=== PATIENT | male | born 1955 | race Caucasian/White ===

== ENCOUNTER → 2018-03-14 06:49 | Outpatient (CLI) | payer OTHER ==
[~2018-03-14] VITALS: Ht 177.8 cm; Wt 113.6 kg
--- NOTE | ~2018-03-14 | HEMODYNAMI ---
PATIENT:GUY MENDIETA MEDICAL RECORD: [id number] : 55 LOCATION:[facility] ADMISSION DATE: 03/14/18 Generatedon:03/14/201810:29 Patient name: GUY MENDIETA Patient #: [id number] SSN : : 1955 Date of study: 03/14/2018 Page: Of Hemodynamic Procedure Report Patient Data Patient Demographics Procedure consent was obtained First Name: GUY Gender: Male Last Name: GAYATRI : 1955 Patient #: [id number] Age: 62 year(s) Race: Unknown Additional ID: [id number] Contact details [address]: [address] [place] [address] State: [place] City: [place] Zip code: [address] Admission Admission Data Admission Date: 03/14/2018 Admission Time: 6:49 Height (in.): 70 BSA: 2.29 (m2) Height (cm.): 177.8 BMI: 35.73 (kg/m2) Weight (lbs.): 249 Weight (kg.): 112.94 Procedure Procedure Types Cath Procedure Diagnostic Procedure LHC Coronaries only Aortic Root Angiography Sedation Charges Moderate Sedation up to 15 minutes Moderate Sedation up to 30 minutes Procedure Description Procedure Date Procedure Date: 03/14/2018 Procedure Start Time: 9:56 Procedure End Time: 10:23 Procedure Staff Name Function Jamarcus Luque MD Performing Physician Lizzie Cuevas RT Monitor Varinder Shah RN Nurse Nicole Kaiser RT Scrub Procedure Data Cath Procedure Fluoroscopy Diagnostic fluoroscopy Total fluoroscopy Time: 8.7 time: 8.7 min min Diagnostic fluoroscopy Total fluoroscopy dose: dose: 2523 mGy 2523 mGy Contrast Material Contrast Material Type Amount (ml) Isovue 300 127 Entry Location Entry Primary Successful Side Size Upsize Upsize Entry Closure Lam ccessful Closure Location (Fr) 1 (Fr) 2 (Fr) Remarks Device Remarks Radial Right 6 Fr Mechanical artery Short Compression Estimated blood loss: 10 ml Diagnostic catheters Device Type Used For End Catheter Placement DIAGNOSTIC Sai 110cm Procedure 5Fr catheter ([id number]) DIAGNOSTIC Macon 110cm 5 Procedure Fr catheter (224489) DIAGNOSTIC AR 1 MOD 5Fr Procedure catheter ([id number]) DIAGNOSTIC Pigtail 5Fr Ventriculography catheter ([id number]) Procedure Complications No complications Procedure Medications Medication Administration Route Dosage Oxygen etCO2 Nasal cannula 2 l/min Heparin Flush Bag added to field 2 bags (1000units/500ml NS) 0.9% NaCl I.V. 100 ml/hr Radial Cocktail added to field 1 syringe (Verapomil 2mg/Nitro 400mcg/Heparin 1500units) Fentanyl I.V. 50 mcg Versed I.V. 1 mg Fentanyl I.V. 50 mcg Versed I.V. 1 mg Radial Cocktail I.A. 1 syringe (Verapomil 2mg/Nitro 400mcg/Heparin 1500units) Hemodynamics Rest BSA: 2.29 (m2) O2 Consumption: Estimated: 277.6 (ml/min) O2 Consumption indexed: Estimated:121.22 (ml/min/m) Heart Rate: 81 (bpm) Pressure Samples Time Site Value (mmHg) Purpose Heart Use Rate(bpm) 10:17 AO 112/66(85) Snapshot 81 Snapshots Pre Cath Intra NCS Post Cath Vital Signs Time Heart Resp SPO2 etCO2 NIBP (mmHg) Rhythm Pain Sedation Rate (ipm) (%) (mmHg) Status Level (bpm) 9:36:57 76 16 94 33 127/76(98) NSR 0 (11) 10(A) , No pain 9:41:05 79 16 94 35.2 126/78(93) NSR 0 (11) 10(A) , No pain 9:45:13 80 16 94 30.7 120/78(93) NSR 0 (11) 10(A) , No pain 9:49:17 80 16 95 39 125/81(102) NSR 0 (11) 10(A) , No pain 9:53:24 78 17 95 37.5 125/77(97) NSR 0 (11) 10(A) , No pain 9:57:30 77 17 94 37.5 128/82(104) NSR 0 (11) 10(A) , No pain 10:01:40 86 17 94 34.5 113/72(86) NSR 0 (11) 9(A) , No pain 10:05:44 82 17 94 36.8 120/74(93) NSR 0 (11) 9(A) , No pain 10:09:52 78 17 95 38.3 115/74(91) NSR 0 (11) 9(A) , No pain 10:13:56 80 16 94 38.2 119/79(102) NSR 0 (11) 9(A) , No pain 10:18:01 82 17 95 39 120/76(95) NSR 0 (11) 9(A) , No pain 10:22:09 81 17 94 39 117/73(89) NSR 0 (11) 9(A) , No pain Medications Time Medication Route Dose Verified Delivered Reason Notes Effectiveness by by 9:37:16 Oxygen etCO2 2 l/min Jamarcus Varinder Per Nasal Rebel Shah RN physician cannula 9:37:23 Heparin Flush added 2 bags Jamarcus Varinder used for Bag to Rebel Shah RN procedure (1000units/500ml field NS) 9:37:31 0.9% NaCl I.V. 100 Jamarcus Varinder Per ml/hr Rebel Shah RN physician 9:37:39 Radial Cocktail added 1 Jamarcus Varinder used for (Verapomil to syringe Rebel Shah RN procedure 2mg/Nitro field 400mcg/Heparin 1500units) 9:55:06 Fentanyl I.V. 50 mcg Jamarcus Varinder for sedation Rebel Shah RN 9:55:12 Versed I.V. 1 mg Jamarcus Varinder for sedation Rebel Shah RN 9:58:33 Fentanyl I.V. 50 mcg Jamarcus Varinder for sedation Rebel Shah RN 9:58:40 Versed I.V. 1 mg Jamarcus Varinder for sedation Rebel Shah RN 9:58:47 Radial Cocktail I.A. 1 Jamarcus Jamarcus for (Verapomil syringe Rebel Luque MD vasodilation 2mg/Nitro 400mcg/Heparin 1500units) Procedure Log Time Note 9:10:35 Varinder Shah RN sent for patient. Start room use. 9:23:02 Patient Weight : 249 lbs 9:23:11 Patient Height : 70 inches 9:24:33 Diagnostic Cath status Elective 9:24:36 Time tracking: Regular hours (M-F 7:00 - 5:00) 9:24:43 Plan of Care:Hemodynamics will remain stable., Cardiac rhythm will remain stable., Comfort level will be maintained., Respiratory function will remain adequate., Patient/ family verbilizes understanding of procedure., Procedure tolerated without complication., Recovers from procedure without complications.. 9:25:20 Patient received from Pre/Post Procedure Room to [facility] 2 Alert and oriented. Tansferred to table in Supine position. 9:35:41 Warm blankets applied, and braeden hugger turned on for patient comfort. 9:35:42 Correct patient and procedure confirmed by team. 9:35:43 Signed procedure consent form obtained from patient. 9:35:45 ECG and BP/O2 sat monitors applied to patient. 9:35:49 Vital chart was started 9:35:52 Full Disclosure recording started 9:35:57 H&P Date Dictated: 03/14/2018 Within 30 days and on chart., H&P Addendum completed by physician on day of procedure. (MUST COMPLETE FOR ALL OUTPATIENTS). 9:35:58 Pre-procedure instructions explained to patient. 9:35:58 Pre-op teaching completed and patient verbalized understanding. 9:36:00 Family in waiting room. 9:36:01 Patient NPO since Midnight. 9:36:03 Is the patient allergic to Iodine/contrast media? No. 9:36:04 Was the patient premedicated? No 9:36:05 Is patient on blood thinner?No 9:36:07 Patient diabetic? Yes. 9:36:08 If diabetic: On Metformin? Yes 9:36:14 If on Metformin: Last Dose? 03/12/2018 9:36:17 Previous problem with sedation/anesthesia? No ? 9:36:19 Snore? Yes 9:36:19 Sleep apnea? Yes 9:36:20 Deviated septum? No 9:36:22 Opens mouth fully? Yes 9:36:23 Sticks out tongue? Yes 9:36:25 Airway obstruction? No ? 9:36:27 Dentures? No ? 9:36:30 Pre procedure: right dorsailis pedis pulse 2+ Normal; easily identifiable; not easily obliterated 9:36:32 Pre procedure: left dorsailis pedis pulse 2+ Normal; easily identifiable; not easily obliterated 9:36:34 Patient pain scale 0/10 ?. 9:36:40 IV patent on arrival in left forearm with 0.9% NaCl at [facility]. 9:36:42 Lab results completed and on chart. 9:36:49 Right Radial & Right Groin area was prepped with chlora-prep and draped in sterile fashion 9:36:49 Alarms reviewed by R. N. 9:36:50 Sharps counted by scrub and verified by R.N. 9:37:16 Oxygen 2 l/min etCO2 Nasal cannula was administered by Varinder Shah RN; Per physician; 9:37:23 Heparin Flush Bag (1000units/500ml NS) 2 bags added to field was administered by Varinder Shah RN; used for procedure; 9:37:31 0.9% NaCl 100 ml/hr I.V. was administered by Varinder Shah RN; Per physician; 9:37:39 Radial Cocktail (Verapomil 2mg/Nitro 400mcg/Heparin 1500units) 1 syringe added to field was administered by Varidner Shah RN; used for procedure; 9:54:04 Physician arrived 9:54:05 --------ALL STOP TIME OUT------ 9:54:05 Final Timeout: patient, procedure, and site verified with staff and physician. All members of the team are in agreement. 9:54:08 Right Radial & Right Groin site verified by team. 9:54:13 Physical assessment completed. ASA score P 2 - A patient with mild systemic disease as per Jamarcus Luque MD. 9:54:17 Sedation plan: IV Moderate Sedation Medication:Versed, Fentanyl 9:54:22 Use device set Radial Dx or PCI 9:55:06 Fentanyl 50 mcg I.V. was administered by Varinder Shah RN; for sedation; 9:55:12 Versed 1 mg I.V. was administered by Varinder Shah RN; for sedation; 9:56:09 Procedure started. 9:56:25 ACIST Syringe (02900) opened to sterile field. 9:56:25 Medline Cath Pack ([id number]) opened to sterile field. 9:56:26 Bag Decanter (2002) opened to sterile field. 9:56:27 DIAGNOSTIC WIRE .035 260cm J wire (079648) opened to sterile field. 9:56:28 ACIST Hand Control (00021) opened to sterile field. 9:56:28 ACIST Manifold (41850) opened to sterile field. 9:56:29 Tegaderm 4 x 4 (1626W) opened to sterile field. 9:56:30 MBrace Wrist Support ([id number]) opened to sterile field. 9:56:31 NEEDLE Cook 21G 4cm Radial (I08767) opened to sterile field. 9:56:34 SHEATH 6Fr Prelude Radial ([id number]) opened to sterile field. 9:56:40 Local anesthetic to right radial artery with Lidocaine 2% by Jamarcus Luque MD.INITIAL ACCESS ONLY 9:57:18 A 6 Fr Short sheath was inserted into the Right Radial artery 9:58:20 A DIAGNOSTIC Sai 110cm 5Fr catheter (452872) was advanced over the wire and used for Procedure. 9:58:33 Fentanyl 50 mcg I.V. was administered by Varinder Shah RN; for sedation; 9:58:40 Versed 1 mg I.V. was administered by Varinder Shah RN; for sedation; 9:58:47 Radial Cocktail (Verapomil 2mg/Nitro 400mcg/Heparin 1500units) 1 syringe I.A. was administered by Jamarcus Luque MD; for vasodilation; 10:00:51 RCA angiography performed. 10:03:39 A DIAGNOSTIC Macon 110cm 5 Fr catheter (856512) was advanced over the wire and used for Procedure. 10:06:03 Catheter removed. 10:06:30 GUIDE 6FR EBU 3.5 catheter (ZE6VFT17) opened to sterile field. 10:08:34 LCA angiography performed. 10:08:54 Catheter removed. 10:11:22 A DIAGNOSTIC AR 1 MOD 5Fr catheter (153542H) was advanced over the wire and used for Procedure. 10:11:37 CX comes off the right 10:12:57 Catheter removed. 10:13:53 GUIDE 5FR AR 2.0 catheter (LR3SS22) opened to sterile field. 10:14:09 LCA angiography performed. 10:14:32 CX visualized 10:15:38 Catheter removed. 10:15:50 A DIAGNOSTIC Pigtail 5Fr catheter (499913K) was advanced over the wire and used for Ventriculography. 10:17:44 unable to cross valve. 10:17:46 Aortic Root visualized 10:19:51 Catheter removed. 10:21:29 Sheath removed intact; hemostasis achieved with Mechanical Compression to the Right Radial artery. 10:21:51 TR BAND Standard (FPT49FAK) opened to sterile field. 10:21:55 Procedure ended.(Physican Out) 10:22:10 Fluoroscopy time 08.70 minutes. 10:22:15 Fluoroscopy dose: 2523 mGy 10:22:15 Flurop Dose total: 2523 10:22:19 Contrast amount:Isovue 300 127ml. 10:22:21 Sharps counted by scrub and verified by R.N. 10:22:23 TR band inflated with 12cc of air. 10:22:25 Insertion/operative site no bleeding no hematoma. 10:22:29 Post-op/insertion site Right Radial artery dressed using a 4 x 4 and Tegaderm. 10:22:35 Post Procedure Pulses reassessed and unchanged 10:22:38 Post-procedure physical assessment completed. ASA score P 2 - A patient with mild systemic disease as per Jamarcus Luque MD. 10:22:41 Post procedure rhythm: unchanged. 10::44 Estimated blood loss: 10 ml 10::46 Post procedure instruction explained to patient.Patient verbalizes understanding. 10:23:06 Procedure type changed to Cath procedure, Diagnostic procedure, LHC, Coronaries only, Aortic Root Angiography, Sedation Charges, Moderate Sedation up to 15 minutes, Moderate Sedation up to 30 minutes 10:23:07 Procedure and supply charges have been captured, reviewed, submitted and are correct. 10:23:27 Procedure Complication : No complications 10:23:31 Vital chart was stopped 10:23:32 See physician's report for complete and final results. 10:23:33 Report given to Pre/Post Procedure Room. 10:23:36 Patient transfered to Pre/Post Procedure Room with Stretcher. 10:23:38 Procedure ended. 10:23:38 Full Disclosure recording stopped 10:23:41 End room use (Document Last) Device Usage Item Name Manufacture Quantity Catalog Number Hospital Part Current M inimal Lot# / Charge Number Stock Stock Serial# Code ACIST Syringe Acist 1 09516 451666 305920 784375 2 0 (57054) Medical Systems Inc Medline Cath Cardinal 1 [id number] 917708 09231 023073 5 Pack Health ([id number]) Bag Decanter Microtek 1 2001S 524468 54167 064122 5 () Medical Inc. DIAGNOSTIC WIRE St Patric 1 220753 716966 843709 462192 3 0 .035 260cm J wire (189411) ACIST Hand Acist 1 11835 203139 341001 004010 5 Control (13556) Medical Systems Inc ACIST Manifold Acist 1 07102 498332 301291 678943 5 (28083) Medical Systems Inc Tegaderm 4 x 4 3M 1 1626W 320199 528682 673983 5 (1626W) MBrace Wrist Advanced 1 140-0250-00 361705 09595 934487 5 Support Vascular ([id number]) Dynamics NEEDLE Cook 21G Cook Medical 1 R66995 855973 622700 133114 5 4cm Radial (T19492) SHEATH 6Fr Merit 1 [id number] 719270 946065 941421 5 Prelude Radial Medical ([id number]) DIAGNOSTIC Terumo 1 40-5023 849336 636500 030547 5 Sai 110cm 5Fr catheter (090082) DIAGNOSTIC Terumo 1 40-5013 387626 646689 414183 5 Macon 110cm 5 Fr catheter (667320) GUIDE 6FR EBU Medtronic 1 [id number] 185843 07938 527792 3 3.5 catheter ([id number]) DIAGNOSTIC AR 1 Cardinal 1 [id number] 273271 075969 275250 1 5 MOD 5Fr Health catheter (838348J) GUIDE 5FR AR Medtronic 1 [id number] 133597 707835 261631 1 2.0 catheter ([id number]) DIAGNOSTIC Cardinal 1 [id number] 936655 906383 419564 5 Pigtail 5Fr Health catheter (631934G) TR BAND Terumo 1 [id number] 283262 816677 231424 4 0 Standard ([id number]) Signature [place] Stage Time Signature Unsigned Intra-Procedure 03/14/2018 Lizzie Cuevas 10:29:30 AM RT(R) Signatures Monitor : Lizzie Cuevas Signature : RT Date : Time : [address] [place] [address]
[~2018-03-14 06:49] MED LIST: ALEVE220 MG PO; BAYER CHEWABLE81 MG PO; FLOMAX0.4 MG PO; GLUCOPHAGE500 MG PO; JARDIANCE25 MG PO; LEVEMIR FLEX TOUCH P SQ; LEVOTHYROXINE175 MCG PO; LISINOPRIL10 MG PO; OMEPRAZOLE40 MG PO; PRAVACHOL40 MG PO; PROZAC20 MG PO; ZYRTEC10 MG PO
[2018-03-14 08:12] VITALS: BP 133/81; BMI 35.9
[2018-03-14 08:26] LABS: BASOPHILS 0.4 % (0-2); EOSINOPHILS 2.5 % (0-7); HEMATOCRIT 48.8 % (42.0-54.0); HEMOGLOBIN 17.1 g/dL (13.5-17.5); IMMATURE GRANULOCYTES 1.3 % (0-5); LYMPHOCYTES 30.3 % (15-50); MCH 29.4 pg (26.0-34.0); MEAN PLATELET VOLUME 10.6 fL (7.4-10.4); NEUTROPHILS 53.5 % (40-80); PLATELET COUNT 138 10x3/uL (130-400); RBC 5.81 10x6/uL (4.20-6.10); RDW 13.4 % (11.5-14.5)
[2018-03-14 08:43] LABS: CALC OSMOLALITY 285 mosm/kg (275-300); CALCIUM 8.4 mg/dL (8.5-10.1); CARBON DIOXIDE 26.1 mmol/L (21.0-32.0); CHLORIDE - SERUM 106 mmol/L (98-107); CREATININE - SERUM 0.9 mg/dL (0.6-1.3); GLUCOSE 154 mg/dL (74-106); POTASSIUM - SERUM 3.9 mmol/L (3.5-5.1); SODIUM 141 mmol/L (136-145); UREA NITROGEN 17 mg/dL (7-18); eGFR NON AFRICAN AMERICAN > 90 mL/min (90-120)
[2018-03-14 13:00] VITALS: Ht 177.8 cm; Wt 113.6 kg
== END | disposition home or self-care (01) ==
LOC: D.CATH 06:49
PROVIDERS: Internal Medicine Cardiovascular Disease
DX: I25.119 Atherosclerotic heart disease of native coronary artery with unspecified angina pectoris (principal); I35.2 Nonrheumatic aortic (valve) stenosis with insufficiency; I34.0 Nonrheumatic mitral (valve) insufficiency; Z01.812 Encounter for preprocedural laboratory examination

== ENCOUNTER 2018-04-05 13:00 | Inpatient (IN) | payer OTHER ==
[~2018-04-05] VITALS: Ht 177.8 cm; Wt 116.2 kg
--- NOTE | ~2018-04-05 | TEE ---
PATIENT:GUY MENDIETA MEDICAL RECORD: [id number] LOCATION:[place] [address] AGE OF PATIENT: 62 ADMISSION DATE: 04/09/18 SEX: M REFERRING PHYSICIAN: INTERPRETING PHYSICIAN: BIJAN MON MD TRANSESOPHAGEAL ECHOCARDIOGRAM Date: 04/09/18 PHUC CHARGE Y INDICATIONS: CABG, AVR PREMEDICATIONS: PATIENT'S RESPONSE PROCEDURE DOPPLER MEASUREMENTS: LVIT LA PA RA LVOT RVOT Asc. Ao AV Gradient Peak AV Mean AV Area MV Gradient Peak MV Mean MV Area INTERPRETATION: Doppler: 2-D: COLOR FLOW DOPPLER NORMAL SALINE STUDY: MISCELLANOUS: DIAGNOSIS: PLAN: Case Assistant:1 Dr. Mon Chemistry Technologist: Mamadou BROUSSARD COMMENTS: LVD: 4.4 LVS: 3.6 DATE OF SERVICE: 04/09/2018 PROCEDURE: Transesophageal echo evaluation of valvular structures during bypass surgery and aortic valve replacement. FINDINGS: 1. Left ventricular chamber size is within normal limits. Left ventricular systolic function is normal. Overall ejection fraction is estimated at 60%. 2. Left atrium, right atrium, and right ventricle chamber sizes are within TRANSESOPHAGEAL ECHOCARDIOGRAM REPORT [id number] Rosalie MENDIETA normal limit. 3. Doppler interrogation reveals significant aortic stenosis; however, this is not a new finding. The patient is scheduled for aortic valve replacement. Else carlson, Doppler interrogation reveals no significant valvular insufficiency or stenosis. 4. No evidence of pericardial effusion or left ventricular thrombus. TRANSINT:[id number] Voice Confirmation ID: [id number] DOCUMENT ID: [id number] at 0924 CC: [id number] DICTATION DATE: 04/09/18 1043 LATRINE CLEANER: 04/09/181950 ADM IN [facility] [address] [id number]
--- NOTE | ~2018-04-05 | MORECARE ---
CASE MANAGEMENT DISCHARGE SUMMARY PATIENT: GUY FERNANDO UNIT: [id number] ADM DATE: 04/09/18 AGE: 62 : 55 SEX: M ROOM/BED: [facility] AUTHOR: CARLOS,DOC PHYSICIAN: REFERRING PHYSICIAN: ERIKA DSOUZA MD DATE OF SERVICE: 04/17/18 Discharge Plan Patient Name: GUY FERNANDO Facility: [facility]:[place] : 1955 Planned Disposition: Home Anticipated Discharge Date: 04/17/18 Discharge Date: 04/17/2018 Expected LOS: 8 Initial Reviewer: [email or web address] Initial Review Date: 04/17/2018 Generated: 04/17/18 6:18 pm Comments DCP- Discharge Planning Updated by [email or web address]: Cynthia Serrano on 04/17/18 4:[address] Late Entry 04/17/18 @0930 Patient Name: GUY FERNANDO Admission Status: Elective Accout number: [id number] Admission Date: 04-09-2018 : 1955 Admission Diagnosis:ATHSCL HEART DISEASE OF [place] CORONARY ARTERY W/O ANG Attending: ERIKA DSOUZA Current LOS: 8 Anticipated DC Date: 04-17-2018 Planned Disposition: Home Primary Insurance: [employer] Discharge Planning Comments: CM met with patient at bedside after obtaining verbal consent. Patient states he plans on returning home after discharge with his family. Patient states he will have family transport him home via private vehicle. Patient denies any discharge needs at this time. CM will continue to follow and assist as needed for discharge planning / needs. Net Application Support Specialist: Cynthia Serrano DCP- Discharge Planning Updated by [email or web address]: Cynthia Serrano on 04/11/18 8:[address] CM attempted to visit with patient this am. Patient not feeling well requested to come back at a later time. CM will continue to follow and assist as needed with discharge planning / needs DCPIA - Discharge Planning Initial Assessment Updated by [email or web address]: Cynthia Serrano on 04/17/18 5:12 pm * Is the patient Alert and Oriented? Yes * How many steps to enter\exit or inside your home? * PCP Dr. Darden * Pharmacy [facility] * Preadmission Environment Home with Family * ADLs Independent * Equipment None * List name and contact numbers for known caregivers / representatives who currently or will assist patient after discharge: Antonio Fernando [phone] * Verbal permission to speak to the caregivers and representatives has been obtained from the patient. N/A * Community resources currently utilized None * Additional services required to return to the preadmission environment? No * Can the patient safely return to the preadmission environment? Yes * Has this patient been hospitalized within the prior 30 days at any hospital? No Patient Name: GUY FERNANDO Page [id number] at 1718 All edits/amendments must be made on the electronic document DICTATION DATE: 04/17/181716 EQUESTRIAN TRAINER: KARON 04/17/181716 RPT#: [id number] DC DATE:04/17/18 STATUS: DIS IN [facility] [address] [place] [address] END OF REPORT
--- NOTE | ~2018-04-05 | OP ---
PATIENT NAME: GUY MENDIETA MEDICAL RECORD: [id number] :55 LOCATION:D.[facility]I D.CV07 ADMISSION DATE:04/09/18 SURGEON: PARMJIT DSOUZA MD DATE OF OPERATION: 04/09/2018 SURGEON: Parmjit Dsouza MD ASSISTANTS: GERRI Arciniega MD and AMAN Kolb OPERATIONS PERFORMED: 1. Aortic valve replacement (23 mm Mendez pericardial bioprosthesis). 2. Coronary artery bypass graft times 4 (left internal mammary to LAD, reverse saphenous vein graft from aorta to diagonal, aorta to circumflex branch, aorta to posterior descending artery). 3. Endoscopic saphenous vein harvest. PREOPERATIVE DIAGNOSES: Coronary artery disease, aortic stenosis, aberrant circumflex origin. POSTOPERATIVE DIAGNOSES: Coronary artery disease, aortic stenosis, aberrant circumflex origin. ANESTHESIA: General endotracheal anesthesia. ESTIMATED BLOOD LOSS: Total cardiopulmonary bypass with Cell Saver. SPECIMENS: None. CONDITION: Stable. DISPOSITION: ICU. OPERATIVE FINDINGS: 1. Transesophageal echocardiography confirmed severe calcification, particularly of the noncoronary cusp with moderate aortic stenosis, 1+ AI, 1+ mitral regurgitation and left ventricular hypertrophy with good contractility. After separation from cardiopulmonary bypass, there was no perivalvular leak, continued 1+ mitral regurgitation. 2. Good quality greater saphenous vein from the right leg endoscopically. 3. Good quality left internal mammary artery. The LAD was a diffusely diseased 1.75 mm vessel. 4. The right coronary artery was calcified throughout. The posterior descending artery was a 1.5 mm vessel. 5. The large first diagonal was a 2.0 mm vessel with mild disease. 6. The circumflex branch in the obtuse marginal location was a 1.5 mm vessel that barely came out of the AV groove. It had only moderate antegrade flow, would not be a good redo candidate. 7. Aortic valve had near total fusion of the left and right cusp. Severe calcification of the noncoronary cusp and a large shelf of calcium just above the left coronary ostium. 8. Separation for cardiopulmonary bypass after initial supraventricular tachycardia, controlled with esmolol. OPERATIVE INDICATION: Coronary artery disease and aortic stenosis. OPERATIVE REPORT [id number] GUY MENDIETA OPERATIVE SUMMARY IN DETAIL: The patient was brought to the operative suite. General anesthesia was obtained, the patient prepped and draped. Greater saphenous vein harvested endoscopically from the patient's right lower extremity. Subcutaneous tissues divided with electrocautery. Vessel ligated proximal and distally, removed. Side branches were tied. Leg was later closed in 2 layers. Median sternotomy incision was made. Subcutaneous tissue was divided by electrocautery. The sternum was divided with a saw. The left hemisternum was elevated. The left pleural cavity was entered. Left internal mammary artery and veins were taken down as a pedicle graft. Sternal retractor was placed. Pericardium was opened. Heparin was given. The area was cannulated. Dual stage venous cannula was inserted. Retrograde cardioplegia cannula was inserted. Internal mammary was clipped distally and made ready for anastomosis. After activating clotting time was appropriately elevated, the patient placed on cardiopulmonary bypass. Sites for distal anastomoses were selected. The patient was cooled. Crossclamp was placed. Cardioplegia was given antegrade and then retrograde and this was repeated at 15 to 20 minute intervals during the crossclamp time. Distal anastomoses were performed in standard technique. Then, a transverse aortotomy was performed. Valve visualized. Valve leaflets removed. Calcium debrided. Valve sized appropriately. Left ventricular vent was placed. The pledgeted valve sutures were placed from ventricular to aortic side through the valve sewing ring, valve carefully lowered into place, sutures were tied, inspected the valve, there was no subvalvular obstruction. Aortotomy was closed. Proximal anastomoses were then performed. The patient was in steep Trendelenburg position. Ventricle was de-aired. Cross-clamp was removed. Aortic root was de-aired. Proximal anastomoses were tied down. Vein grafts were de-aired and flow was restored. Proximal and distal anastomotic sites were inspected for bleeding. Atrial and ventricular pacing wires were placed. Left ventricular vent was removed. The site was oversewn with a pledgeted Prolene suture and the retrograde cannula was removed. The site was oversewn. The patient was fully rewarmed, but had some tachycardia, responded to esmolol. Once he was stable, weaned from cardiopulmonary bypass. The patient was decannulated. Aortic cannulation site was oversewn with a pledgeted Prolene suture. Protamine was given. Thorough irrigation was undertaken. Graft lay appropriately and there was no evidence of bleeding. Pericardial fat was approximated. Drains were placed in the mediastinum and left pleural cavity. The internal mammary harvest site was inspected for bleeding. Left chest was evacuated and irrigated. Sternum was closed with wires. The patient was stable with the chest closed. Fascia was closed. Subcutaneous tissue was closed. The skin was closed. Dermabond was placed. The needle and sponge counts were reported as correct. The patient was taken to the ICU in stable condition. TRANSINT:[id number] Voice Confirmation ID: [id number] DOCUMENT ID: [id number] OPERATIVE REPORT [id number] GUY MENDIETA, PARMJIT Otero MD at 0747 CC: CHRIS EMANUEL M.D. and MILA SRINIVASAN [id number] DICTATION DATE: 04/09/18 1600 OPTICIAN APPRENTICE: 04/09/18 1650 ADM IN [place] [id number] [place] [address]
--- NOTE | ~2018-04-05 | HEMODYNAMI ---
PATIENT:GUY MENDIETA MEDICAL RECORD: [id number] : 55 LOCATION:JESSICA D.CV07 ADMISSION DATE: 04/09/18 Generatedon:04/11/201812:24 Patient name: GUY MENDIETA Patient #: [id number] SSN: : 1955 Date of study: 04/11/2018 Page: Of Hemodynamic Procedure Report Patient Data Patient Demographics First Name: GUY Gender: Male Last Name: GAYATRI : 1955 Patient #: [id number] Age: 62 year(s) Race: Unknown Additional ID: [id number] Contact details Address: [address] [place] [address] State: [place] City: [place] Zip code: [address] Admission Admission Data Admission Date: 04/09/2018 Admission Time: 5:00 Room #: D.CV07 Procedure Procedure Types Cath Procedure Diagnostic Procedure Cardioversion External Procedure Description Procedure Date Procedure Date: 04/11/2018 Procedure Start Time: 10:17 Procedure Staff Name Function Rossy Mason RN Nurse Parmjit Salcido MD Performing Physician Conrad Leavitt RT Monitor Hemodynamics Rest Pre Cath Intra NCS Post Cath Procedure Log Time Note 10:18:49 Procedure performed in CV7 Signature Audit [place] Stage Time Signature Unsigned Intra-Procedure 04/11/2018 Conrad Leavitt 12:24:24 PM RT(R) (CV) Signatures Monitor : Conrad Leavitt RT Signature : Date : Time : [address] [address]
--- NOTE | ~2018-04-05 | MORECARE ---
CASE MANAGEMENT DISCHARGE SUMMARY PATIENT: GUY FERNANDO UNIT: [id number] ADM DATE: 04/09/18 AGE: 62 : 55 SEX: M ROOM/BED: D[facility] AUTHOR: CARLOS,DOC PHYSICIAN: REFERRING PHYSICIAN: ERIKA DSOUZA MD DATE OF SERVICE: 04/17/18 Discharge Plan Patient Name: GUY FERNANDO Facility: [facility]:[place] : 1955 Planned Disposition: Home Anticipated Discharge Date: 04/17/18 Discharge Date: 04/17/2018 Expected LOS: 8 Initial Reviewer: [email or web address] Initial Review Date: 04/17/2018 Generated: 04/17/18 6:26 pm Comments DCP- Discharge Planning Updated by [email or web address]: Cynthia Serrano on 04/17/18 4:[address] Late Entry 04/17/18 @0930 Patient Name: GUY FERNANDO Admission Status: Elective Accout number: [id number] Admission Date: 04-09-2018 : 1955 Admission Diagnosis:ATHSCL HEART DISEASE OF [place] CORONARY ARTERY W/O ANG Attending: ERIKA DSOUZA Current LOS: 8 Anticipated DC Date: 04-17-2018 Planned Disposition: Home Primary Insurance: [employer] MA[employer]GED MEDICAID Discharge Planning Comments: CM met with patient at bedside after obtaining verbal consent. Patient states he plans on returning home after discharge with his family. Patient states he will have family transport him home via private vehicle. Patient denies any discharge needs at this time. CM will continue to follow and assist as needed for discharge planning / needs. Brain Picker: Cynthia Serrano DCP- Discharge Planning Updated by [email or web address]: Cynthia Serrano on 04/11/18 8:[address] CM attempted to visit with patient this am. Patient not feeling well requested to come back at a later time. CM will continue to follow and assist as needed with discharge planning / needs DCPIA - Discharge Planning Initial Assessment Updated by [email or web address]: Cynthia Serrano on 04/17/18 5:12 pm * Is the patient Alert and Oriented? Yes * How many steps to enter\exit or inside your home? * PCP Dr. Darden * Pharmacy [facility] * Preadmission Environment Home with Family * ADLs Independent * Equipment None * List name and contact numbers for known caregivers / representatives who currently or will assist patient after discharge: Antonio Fernando [phone] * Verbal permission to speak to the caregivers and representatives has been obtained from the patient. N/A * Community resources currently utilized None * Additional services required to return to the preadmission environment? No * Can the patient safely return to the preadmission environment? Yes * Has this patient been hospitalized within the prior 30 days at any hospital? No Last DP export: 04/17/18 4:18 Patient Name: GUY FERNANDO Page 01337 at 1727 All edits/amendments must be made on the electronic document DICTATION DATE: 04/17/181725 CONCRETE MIXER LOADER TRUCK MOUNTED: KARON 04/17/181725 RPT#: [id number] DC DATE:04/17/18 STATUS: DIS IN [address] [place] [address] END OF REPORT
[2018-04-05 15:30] LABS: BASOPHILS 0.2 % (0-2); EOSINOPHILS 2.3 % (0-7); HEMATOCRIT 50.3 % (42.0-54.0); HEMOGLOBIN 17.9 g/dL (13.5-17.5); IMMATURE GRANULOCYTES 0.7 % (0-5); LYMPHOCYTES 22.4 % (15-50); MCH 29.7 pg (26.0-34.0); MCHC 35.6 g/dL (31.0-37.0); MCV 83.4 fL (80.0-100.0); MONOCYTES 9.9 % (2-11); NEUTROPHILS 64.5 % (40-80); RBC 6.03 10x6/uL (4.20-6.10); RDW 13.3 % (11.5-14.5); WBC 10.2 10x3/uL (4.8-10.8)
[2018-04-05 15:32] LABS: PLATELET COUNT 173 10x3/uL (130-400)
[2018-04-05 15:36] LABS: APPEARANCE CLEAR (CLEAR); BILIRUBIN NEGATIVE (NEGATIVE); COLOR YELLOW (YELLOW); GLUCOSE 1000 mg/dL (NEGATIVE); KETONE NEGATIVE (NEGATIVE); NITRITE NEGATIVE (NEGATIVE); PROTEIN NEGATIVE (NEGATIVE); UROBILINOGEN NORMAL (NORMAL)
[2018-04-05 15:40] LABS: PROTIME 12.8 SECONDS (11.6-15.0)
[2018-04-05 15:41] LABS: APTT 25.7 SECONDS (22.8-39.4)
[2018-04-05 15:55] LABS: ALKALINE PHOSPHATASE 79 U/L (46-116); ALT (SGPT) 39 U/L (10-68); BILIRUBIN - TOTAL 0.37 mg/dL (0.2-1.3); CALC OSMOLALITY 280 mosm/kg (275-300); CALCIUM 9.1 mg/dL (8.5-10.1); CARBON DIOXIDE 21.7 mmol/L (21.0-32.0); CHLORIDE - SERUM 104 mmol/L (98-107); CHOLESTEROL, TOTAL 210 mg/dL (0-200); CREATININE - SERUM 0.9 mg/dL (0.6-1.3); GLUCOSE 145 mg/dL (74-106); PHOSPHOROUS 2.8 mg/dL (2.5-4.9); POTASSIUM - SERUM 4.1 mmol/L (3.5-5.1); PROTEIN - SERUM 7.4 g/dL (6.4-8.2); SODIUM 139 mmol/L (136-145); T4 THYROXIN - FREE 1.42 ng/dL (0.76-1.46); THYROID STIMULATING HORMONE 0.58 uIU/mL (0.36-3.74); UREA NITROGEN 12 mg/dL (7-18); URIC ACID 6.2 mg/dL (2.6-7.2); eGFR NON AFRICAN AMERICAN > 90 mL/min (90-120)
[2018-04-09] VITALS (33 sets, daily range): BP systolic 91–156; BP diastolic 50–78; BMI 35.8; BMI 36.4
[2018-04-10] VITALS (96 sets, daily range): BP systolic 92–141; BP diastolic 8–78; Ht 177.8 cm; Wt 116.2 kg
[2018-04-10 06:19] LABS: HEMATOCRIT 41.7 % (42.0-54.0); MCH 28.9 pg (26.0-34.0); MCHC 33.6 g/dL (31.0-37.0); RBC 4.85 10x6/uL (4.20-6.10); WBC 21.5 10x3/uL (4.8-10.8)
[2018-04-10 06:24] LABS: ALBUMIN 2.8 g/dL (3.4-5.0); ANION GAP 18.5 mmol/L (8-16); BILIRUBIN - TOTAL 0.75 mg/dL (0.2-1.3); CALCIUM 7.9 mg/dL (8.5-10.1); CARBON DIOXIDE 21.6 mmol/L (21.0-32.0); CREATININE - SERUM 1.1 mg/dL (0.6-1.3); POTASSIUM - SERUM 5.1 mmol/L (3.5-5.1)
[2018-04-11] VITALS (72 sets, daily range): BP systolic 82–138; BP diastolic 49–75
[2018-04-11 06:42] LABS: HEMATOCRIT 36.9 % (42.0-54.0); HEMOGLOBIN 12.2 g/dL (13.5-17.5); MCH 28.8 pg (26.0-34.0); MCHC 33.1 g/dL (31.0-37.0); MCV 87.2 fL (80.0-100.0); MEAN PLATELET VOLUME 11.7 fL (7.4-10.4); RBC 4.23 10x6/uL (4.20-6.10); WBC 18.4 10x3/uL (4.8-10.8)
[2018-04-11 07:04] LABS: ALBUMIN 2.6 g/dL (3.4-5.0); ALKALINE PHOSPHATASE 44 U/L (46-116); ALT (SGPT) 32 U/L (10-68); BILIRUBIN - TOTAL 0.71 mg/dL (0.2-1.3); CARBON DIOXIDE 23.1 mmol/L (21.0-32.0); CHLORIDE - SERUM 103 mmol/L (98-107); GLUCOSE 192 mg/dL (74-106); POTASSIUM - SERUM 4.7 mmol/L (3.5-5.1); PROTEIN - SERUM 5.6 g/dL (6.4-8.2); SODIUM 140 mmol/L (136-145); eGFR NON AFRICAN AMERICAN 80 mL/min (90-120)
[2018-04-11 07:06] LABS: CALC OSMOLALITY 285 mosm/kg (275-300); PLATELET COUNT 79 10x3/uL (130-400); UREA NITROGEN 19 mg/dL (7-18)
[2018-04-11 07:19] LABS: PLATELET ESTIMATE DECREASED
[2018-04-11 11:37] LABS: MAGNESIUM - SERUM 2.3 mg/dL (1.8-2.4); POTASSIUM - SERUM 4.9 mmol/L (3.5-5.1)
[2018-04-12] VITALS (31 sets, daily range): BP systolic 100–143; BP diastolic 60–89
[2018-04-12 05:42] LABS: HEMATOCRIT 35.3 % (42.0-54.0); HEMOGLOBIN 11.8 g/dL (13.5-17.5); MCH 29.1 pg (26.0-34.0); MCHC 33.4 g/dL (31.0-37.0); MCV 86.9 fL (80.0-100.0); MEAN PLATELET VOLUME 11.5 fL (7.4-10.4); RBC 4.06 10x6/uL (4.20-6.10); WBC 19.7 10x3/uL (4.8-10.8)
[2018-04-12 06:04] LABS: ALBUMIN 2.5 g/dL (3.4-5.0); ANION GAP 15.2 mmol/L (8-16); BILIRUBIN - TOTAL 0.67 mg/dL (0.2-1.3); CALCIUM 7.7 mg/dL (8.5-10.1); CARBON DIOXIDE 24.8 mmol/L (21.0-32.0); CREATININE - SERUM 1.1 mg/dL (0.6-1.3); PROTEIN - SERUM 5.6 g/dL (6.4-8.2)
[2018-04-13] VITALS (22 sets, daily range): BP systolic 94–188; BP diastolic 54–96
[2018-04-13 05:51] LABS: HEMATOCRIT 33.9 % (42.0-54.0); HEMOGLOBIN 11.3 g/dL (13.5-17.5); MCH 28.8 pg (26.0-34.0); MCHC 33.3 g/dL (31.0-37.0); MCV 86.3 fL (80.0-100.0); RBC 3.93 10x6/uL (4.20-6.10); RDW 13.8 % (11.5-14.5); WBC 15.3 10x3/uL (4.8-10.8)
[2018-04-13 06:08] LABS: ALBUMIN 2.4 g/dL (3.4-5.0); ALKALINE PHOSPHATASE 60 U/L (46-116); BILIRUBIN - TOTAL 0.66 mg/dL (0.2-1.3); CALC OSMOLALITY 281 mosm/kg (275-300); CALCIUM 7.6 mg/dL (8.5-10.1); CARBON DIOXIDE 26.6 mmol/L (21.0-32.0); CHLORIDE - SERUM 100 mmol/L (98-107); CREATININE - SERUM 0.9 mg/dL (0.6-1.3); GLUCOSE 162 mg/dL (74-106); PROTEIN - SERUM 5.7 g/dL (6.4-8.2); SODIUM 136 mmol/L (136-145); UREA NITROGEN 28 mg/dL (7-18); eGFR NON AFRICAN AMERICAN > 90 mL/min (90-120)
[2018-04-13 06:09] LABS: ALT (SGPT) 927 U/L (10-68); POTASSIUM - SERUM 4.2 mmol/L (3.5-5.1)
[2018-04-14] VITALS (24 sets, daily range): BP systolic 90–130; BP diastolic 55–76
[2018-04-14 05:59] LABS: HEMATOCRIT 33.4 % (42.0-54.0); HEMOGLOBIN 11.1 g/dL (13.5-17.5); MCH 28.5 pg (26.0-34.0); MCHC 33.2 g/dL (31.0-37.0); MCV 85.9 fL (80.0-100.0); MEAN PLATELET VOLUME 11.1 fL (7.4-10.4); RBC 3.89 10x6/uL (4.20-6.10); RDW 13.9 % (11.5-14.5); WBC 13.3 10x3/uL (4.8-10.8)
[2018-04-14 06:18] LABS: ALBUMIN 2.4 g/dL (3.4-5.0); ALKALINE PHOSPHATASE 68 U/L (46-116); ALT (SGPT) 866 U/L (10-68); BILIRUBIN - TOTAL 0.85 mg/dL (0.2-1.3); CALC OSMOLALITY 279 mosm/kg (275-300); CALCIUM 7.6 mg/dL (8.5-10.1); CARBON DIOXIDE 29.9 mmol/L (21.0-32.0); CHLORIDE - SERUM 98 mmol/L (98-107); CREATININE - SERUM 0.9 mg/dL (0.6-1.3); GLUCOSE 204 mg/dL (74-106); POTASSIUM - SERUM 4.1 mmol/L (3.5-5.1); PROTEIN - SERUM 5.7 g/dL (6.4-8.2); SODIUM 135 mmol/L (136-145); UREA NITROGEN 23 mg/dL (7-18); eGFR NON AFRICAN AMERICAN > 90 mL/min (90-120)
[2018-04-14 21:29] LABS: MAGNESIUM - SERUM 1.9 mg/dL (1.8-2.4); POTASSIUM - SERUM 3.6 mmol/L (3.5-5.1)
[2018-04-15] VITALS (22 sets, daily range): BP systolic 92–122; BP diastolic 50–80
[2018-04-15 06:21] LABS: BASOPHILS 0.3 % (0-2); EOSINOPHILS 2.5 % (0-7); HEMATOCRIT 33.8 % (42.0-54.0); HEMOGLOBIN 11.4 g/dL (13.5-17.5); IMMATURE GRANULOCYTES 5.1 % (0-5); LYMPHOCYTES 11.7 % (15-50); MCH 28.8 pg (26.0-34.0); MCHC 33.7 g/dL (31.0-37.0); MCV 85.4 fL (80.0-100.0); MEAN PLATELET VOLUME 11.6 fL (7.4-10.4); MONOCYTES 10.9 % (2-11); NEUTROPHILS 69.5 % (40-80); RBC 3.96 10x6/uL (4.20-6.10); WBC 15.2 10x3/uL (4.8-10.8)
[2018-04-15 06:22] LABS: PLATELET COUNT 137 10x3/uL (130-400)
[2018-04-15 06:39] LABS: ALBUMIN 2.4 g/dL (3.4-5.0); ALKALINE PHOSPHATASE 72 U/L (46-116); ALT (SGPT) 620 U/L (10-68); BILIRUBIN - TOTAL 0.69 mg/dL (0.2-1.3); CALC OSMOLALITY 275 mosm/kg (275-300); CALCIUM 7.9 mg/dL (8.5-10.1); CARBON DIOXIDE 26.9 mmol/L (21.0-32.0); CHLORIDE - SERUM 98 mmol/L (98-107); CREATININE - SERUM 0.9 mg/dL (0.6-1.3); GLUCOSE 184 mg/dL (74-106); POTASSIUM - SERUM 4.2 mmol/L (3.5-5.1); PROTEIN - SERUM 5.9 g/dL (6.4-8.2); SODIUM 134 mmol/L (136-145); UREA NITROGEN 21 mg/dL (7-18); eGFR NON AFRICAN AMERICAN > 90 mL/min (90-120)
[2018-04-16] VITALS (16 sets, daily range): BP systolic 90–115; BP diastolic 46–73
[2018-04-16 06:18] LABS: BASOPHILS 0.1 % (0-2); EOSINOPHILS 3.3 % (0-7); HEMATOCRIT 32.7 % (42.0-54.0); LYMPHOCYTES 12.1 % (15-50); MCH 28.7 pg (26.0-34.0); MCHC 33.6 g/dL (31.0-37.0); MCV 85.4 fL (80.0-100.0); MEAN PLATELET VOLUME 11.5 fL (7.4-10.4); MONOCYTES 11.6 % (2-11); NEUTROPHILS 67.9 % (40-80); PLATELET COUNT 145 10x3/uL (130-400); RBC 3.83 10x6/uL (4.20-6.10); RDW 14.1 % (11.5-14.5); WBC 14.9 10x3/uL (4.8-10.8)
[2018-04-16 06:30] LABS: ALBUMIN 2.3 g/dL (3.4-5.0); ALKALINE PHOSPHATASE 77 U/L (46-116); BILIRUBIN - TOTAL 0.75 mg/dL (0.2-1.3); CALC OSMOLALITY 278 mosm/kg (275-300); CALCIUM 7.6 mg/dL (8.5-10.1); CARBON DIOXIDE 30.5 mmol/L (21.0-32.0); CHLORIDE - SERUM 99 mmol/L (98-107); CREATININE - SERUM 0.9 mg/dL (0.6-1.3); GLUCOSE 145 mg/dL (74-106); POTASSIUM - SERUM 3.8 mmol/L (3.5-5.1); PROTEIN - SERUM 5.8 g/dL (6.4-8.2); SODIUM 136 mmol/L (136-145); UREA NITROGEN 24 mg/dL (7-18); eGFR NON AFRICAN AMERICAN > 90 mL/min (90-120)
[2018-04-16 06:31] LABS: ALT (SGPT) 402 U/L (10-68)
[2018-04-17] VITALS (14 sets, daily range): BP systolic 82–119; BP diastolic 46–71
[2018-04-17] MEDS ORDERED: AMIODARONE HCL200 MG PO (10:32)
[2018-04-17] MEDS ORDERED: METOPROLOL TART50 MG PO (10:32)
[2018-04-17] MEDS ORDERED: K-DUR20 MEQ PO (10:49)
[2018-04-17] MEDS ORDERED: COLACE100 MG PO (10:50)
[2018-04-17] MEDS ORDERED: LASIX40 MG PO (10:50)
[2018-04-17] MEDS ORDERED: PERCOCET 5-3251 TAB PO (10:55)
[2018-04-17] MEDS ORDERED: LISINOPRIL2.5 MG PO (11:49)
[2018-04-17] MEDS ORDERED: TOPROL XL50 MG PO (11:49)
== END 2018-04-17 14:56 | disposition home or self-care (01) | DRG 219 ==
LOC: D.SDCHOLD 13:00 → D.CVICU 04-09 05:00 → D.SDCHOLD 04-09 07:30 → D.CVICU 04-09 13:22 → D.SDCHOLD 04-11 08:53 → D.CVICU 04-11 08:54
PROVIDERS: Family Medicine; Internal Medicine Cardiovascular Disease; Thoracic Surgery (Cardiothoracic Vascular Surgery)
PROC: 021209W Bypass Coronary Artery, Three Arteries from Aorta with Autologous Venous Tissue, Open Approach (ICD-10-PCS; 2018-04-09)
PROC: 06BP4ZZ Excision of Right Saphenous Vein, Percutaneous Endoscopic Approach (ICD-10-PCS; 2018-04-09)
PROC: 5A1221Z Performance of Cardiac Output, Continuous (ICD-10-PCS; 2018-04-09)
PROC: B24BZZ4 Ultrasonography of Heart with Aorta, Transesophageal (ICD-10-PCS; 2018-04-09)
PROC: 02RF08Z Replacement of Aortic Valve with Zooplastic Tissue, Open Approach (ICD-10-PCS; principal; 2018-04-09 07:30)
PROC: 02100Z9 Bypass Coronary Artery, One Artery from Left Internal Mammary, Open Approach (ICD-10-PCS; 2018-04-09 07:30)
DX: I25.10 Atherosclerotic heart disease of native coronary artery without angina pectoris (principal); K72.00 Acute and subacute hepatic failure without coma; J98.11 Atelectasis; I48.1 Persistent atrial fibrillation; B37.0 Candidal stomatitis; I35.0 Nonrheumatic aortic (valve) stenosis; E11.65 Type 2 diabetes mellitus with hyperglycemia; K21.9 Gastro-esophageal reflux disease without esophagitis; E03.9 Hypothyroidism, unspecified; I48.0 Paroxysmal atrial fibrillation; R00.0 Tachycardia, unspecified; D64.9 Anemia, unspecified; I10 Essential (primary) hypertension

== ENCOUNTER → 2018-05-08 09:19 | Outpatient (CLI) | payer OTHER ==
[2018-04-10 10:48] VITALS: BMI 36.4
[~2018-05-08 09:19] MED LIST changes: +AMIODARONE HCL200 MG PO; +COLACE100 MG PO; +K-DUR20 MEQ PO; +LASIX40 MG PO; +LISINOPRIL2.5 MG PO; +METOPROLOL TART50 MG PO; +PERCOCET 5-3251 TAB PO; +TOPROL XL50 MG PO
[2018-05-08 09:49] LABS: HEMOGLOBIN 14.3 g/dL (13.5-17.5); MCH 27.9 pg (26.0-34.0); MCHC 32.5 g/dL (31.0-37.0); MCV 85.9 fL (80.0-100.0); MEAN PLATELET VOLUME 10.2 fL (7.4-10.4); RBC 5.12 10x6/uL (4.20-6.10); RDW 14.2 % (11.5-14.5); WBC 9.7 10x3/uL (4.8-10.8)
[2018-05-08 10:08] LABS: ALBUMIN 3.3 g/dL (3.4-5.0); ANION GAP 12.9 mmol/L (8-16); BILIRUBIN - TOTAL 0.34 mg/dL (0.2-1.3); CALCIUM 8.7 mg/dL (8.5-10.1); CARBON DIOXIDE 26.5 mmol/L (21.0-32.0); CREATININE - SERUM 1.2 mg/dL (0.6-1.3); POTASSIUM - SERUM 4.4 mmol/L (3.5-5.1); PROTEIN - SERUM 7.2 g/dL (6.4-8.2)
== END | disposition home or self-care (01) ==
LOC: D.RAD 09:19
PROVIDERS: Thoracic Surgery (Cardiothoracic Vascular Surgery)
DX: J91.8 Pleural effusion in other conditions classified elsewhere (principal); D64.9 Anemia, unspecified

== ENCOUNTER 2018-06-12 13:45 | Inpatient (IN) | payer OTHER ==
[~2018-06-12] VITALS: Ht 177.8 cm; Wt 66.4 kg
[2018-06-12] MEDS ORDERED: GABAPENTIN100 MG (13:57)
[2018-06-12 14:20] VITALS: BP 124/73
[2018-06-12 14:50] VITALS: BP 97/69
[2018-06-12 14:53] LABS: BASOPHILS 0.3 % (0-2); EOSINOPHILS 2.4 % (0-7); HEMATOCRIT 47.4 % (42.0-54.0); HEMOGLOBIN 15.3 g/dL (13.5-17.5); IMMATURE GRANULOCYTES 0.5 % (0-5); LYMPHOCYTES 26.3 % (15-50); MCH 26.2 pg (26.0-34.0); MCHC 32.3 g/dL (31.0-37.0); MEAN PLATELET VOLUME 11.9 fL (7.4-10.4); MONOCYTES 11.5 % (2-11); RBC 5.85 10x6/uL (4.20-6.10); RDW 13.3 % (11.5-14.5); WBC 10.2 10x3/uL (4.8-10.8)
[2018-06-12 14:54] LABS: PLATELET COUNT 176 10x3/uL (130-400)
[2018-06-12 15:03] LABS: APTT 27.1 SECONDS (22.8-39.4); INR 1.05 (0.85-1.17); PROTIME 13.2 SECONDS (11.6-15.0)
[2018-06-12 15:04] LABS: D-DIMER-QUANTITATIVE 0.57 ug/mLFEU (0.20-0.54)
[2018-06-12 15:09] LABS: ALBUMIN 3.6 g/dL (3.4-5.0); ALKALINE PHOSPHATASE 84 U/L (46-116); ALT (SGPT) 24 U/L (10-68); BILIRUBIN - TOTAL 0.37 mg/dL (0.2-1.3); CALC OSMOLALITY 276 mosm/kg (275-300); CALCIUM 8.7 mg/dL (8.5-10.1); CHLORIDE - SERUM 103 mmol/L (98-107); PROTEIN - SERUM 7.8 g/dL (6.4-8.2); SODIUM 138 mmol/L (136-145); UREA NITROGEN 13 mg/dL (7-18); eGFR NON AFRICAN AMERICAN 80 mL/min (90-120)
[2018-06-12 15:10] VITALS: BP 99/65
[2018-06-12 15:12] LABS: GLUCOSE 114 mg/dL (74-106)
[2018-06-12 15:20] LABS: CKMB 1.4 U/L (0.0-3.6); CREATINE KINASE 96 UL (21-232); MAGNESIUM - SERUM 1.9 mg/dL (1.8-2.4)
[2018-06-12 15:21] LABS: TROPONIN-I < 0.017 ng/mL (0.000-0.060)
[2018-06-12] MEDS ORDERED: AMOXICILLIN875 MG PO (15:21)
[2018-06-12 15:27] VITALS: BP 111/68
[2018-06-12 20:18] VITALS: BP 122/90
[2018-06-12 22:03] LABS: CKMB 1.2 U/L (0.0-3.6); CREATINE KINASE 81 UL (21-232)
[2018-06-12 22:08] LABS: TROPONIN-I < 0.017 ng/mL (0.000-0.060)
[2018-06-13 00:29] VITALS: BP 103/62
[2018-06-13 04:00] VITALS: BP 120/68
[2018-06-13 04:34] LABS: BASOPHILS 0.2 % (0-2); EOSINOPHILS 3.4 % (0-7); HEMATOCRIT 43.7 % (42.0-54.0); HEMOGLOBIN 14.1 g/dL (13.5-17.5); IMMATURE GRANULOCYTES 0.4 % (0-5); LYMPHOCYTES 26.8 % (15-50); MCHC 32.3 g/dL (31.0-37.0); MCV 80.5 fL (80.0-100.0); MEAN PLATELET VOLUME 11.7 fL (7.4-10.4); MONOCYTES 10.2 % (2-11); PLATELET COUNT 149 10x3/uL (130-400); RBC 5.43 10x6/uL (4.20-6.10); RDW 13.5 % (11.5-14.5); WBC 8.3 10x3/uL (4.8-10.8)
[2018-06-13 05:01] LABS: ALBUMIN 3.1 g/dL (3.4-5.0); ALKALINE PHOSPHATASE 68 U/L (46-116); ALT (SGPT) 24 U/L (10-68); BILIRUBIN - TOTAL 0.51 mg/dL (0.2-1.3); CALCIUM 8.4 mg/dL (8.5-10.1); CARBON DIOXIDE 24.6 mmol/L (21.0-32.0); CHLORIDE - SERUM 102 mmol/L (98-107); CKMB 1.5 U/L (0.0-3.6); CREATINE KINASE 92 UL (21-232); CREATININE - SERUM 0.9 mg/dL (0.6-1.3); POTASSIUM - SERUM 3.7 mmol/L (3.5-5.1); PROTEIN - SERUM 6.8 g/dL (6.4-8.2); SODIUM 137 mmol/L (136-145); UREA NITROGEN 13 mg/dL (7-18); eGFR NON AFRICAN AMERICAN > 90 mL/min (90-120)
[2018-06-13 05:09] LABS: CALC OSMOLALITY 277 mosm/kg (275-300); GLUCOSE 166 mg/dL (74-106); TROPONIN-I < 0.017 ng/mL (0.000-0.060)
[2018-06-13 07:37] VITALS: BP 121/74
[2018-06-13 12:12] VITALS: BP 110/70
[2018-06-13 12:56] VITALS: Ht 177.8 cm; Wt 66.4 kg
[2018-06-13 14:48] LABS: T4 THYROXIN - FREE 1.69 ng/dL (0.76-1.46); THYROID STIMULATING HORMONE 0.61 uIU/mL (0.36-3.74)
[2018-06-13 16:15] VITALS: BP 115/70
[2018-06-13 20:45] VITALS: BP 102/63
[2018-06-14 00:17] VITALS: BP 97/65
[2018-06-14 05:04] VITALS: BP 122/66
[2018-06-14 09:08] VITALS: BP 106/70
[2018-06-14 12:14] VITALS: BP 118/80
[2018-06-14 16:18] VITALS: BP 108/76
[2018-06-14 20:00] VITALS: BP 115/70
[2018-06-15] VITALS: BP 117/77
[2018-06-15 04:00] VITALS: BP 127/76
[2018-06-15 05:27] LABS: BASOPHILS 0.4 % (0-2); HEMATOCRIT 42.6 % (42.0-54.0); HEMOGLOBIN 13.9 g/dL (13.5-17.5); IMMATURE GRANULOCYTES 0.5 % (0-5); LYMPHOCYTES 19.9 % (15-50); MCH 25.8 pg (26.0-34.0); MCHC 32.6 g/dL (31.0-37.0); MCV 79.2 fL (80.0-100.0); MEAN PLATELET VOLUME 11.5 fL (7.4-10.4); MONOCYTES 9.9 % (2-11); NEUTROPHILS 65.3 % (40-80); PLATELET COUNT 164 10x3/uL (130-400); RBC 5.38 10x6/uL (4.20-6.10); RDW 13.3 % (11.5-14.5); WBC 8.3 10x3/uL (4.8-10.8)
[2018-06-15 06:08] LABS: CALC OSMOLALITY 279 mosm/kg (275-300); CALCIUM 8.6 mg/dL (8.5-10.1); CHLORIDE - SERUM 103 mmol/L (98-107); CREATININE - SERUM 0.9 mg/dL (0.6-1.3); GLUCOSE 162 mg/dL (74-106); POTASSIUM - SERUM 3.7 mmol/L (3.5-5.1); SODIUM 138 mmol/L (136-145); UREA NITROGEN 12 mg/dL (7-18); eGFR NON AFRICAN AMERICAN > 90 mL/min (90-120)
[2018-06-15 08:07] VITALS: BP 133/86
[2018-06-15 11:32] VITALS: BP 138/74
[2018-06-15 15:39] VITALS: BP 126/84
[2018-06-15 20:30] VITALS: BP 108/78
[2018-06-16 00:30] VITALS: BP 109/75
[2018-06-16 04:30] VITALS: BP 103/74
[2018-06-16 05:46] LABS: BASOPHILS 0.2 % (0-2); EOSINOPHILS 7.1 % (0-7); HEMATOCRIT 44.5 % (42.0-54.0); HEMOGLOBIN 14.4 g/dL (13.5-17.5); IMMATURE GRANULOCYTES 0.6 % (0-5); LYMPHOCYTES 25.9 % (15-50); MCH 25.8 pg (26.0-34.0); MCHC 32.4 g/dL (31.0-37.0); MCV 79.7 fL (80.0-100.0); MONOCYTES 10.6 % (2-11); NEUTROPHILS 55.6 % (40-80); PLATELET COUNT 176 10x3/uL (130-400); RBC 5.58 10x6/uL (4.20-6.10); RDW 13.3 % (11.5-14.5); WBC 8.4 10x3/uL (4.8-10.8)
[2018-06-16 06:11] LABS: CALC OSMOLALITY 278 mosm/kg (275-300); CALCIUM 8.3 mg/dL (8.5-10.1); CARBON DIOXIDE 21.3 mmol/L (21.0-32.0); CHLORIDE - SERUM 104 mmol/L (98-107); CREATININE - SERUM 0.9 mg/dL (0.6-1.3); GLUCOSE 160 mg/dL (74-106); SODIUM 138 mmol/L (136-145); UREA NITROGEN 12 mg/dL (7-18); eGFR NON AFRICAN AMERICAN > 90 mL/min (90-120)
[2018-06-16 08:16] VITALS: BP 114/79
[2018-06-16 11:21] VITALS: BP 118/83
[2018-06-16 15:55] VITALS: BP 119/82
[2018-06-16 20:30] VITALS: BP 123/86
[2018-06-17 00:30] VITALS: BP 112/75
[2018-06-17 04:30] VITALS: BP 101/71
[2018-06-17 05:48] LABS: BASOPHILS 0.4 % (0-2); EOSINOPHILS 5.8 % (0-7); HEMATOCRIT 41.9 % (42.0-54.0); HEMOGLOBIN 13.8 g/dL (13.5-17.5); IMMATURE GRANULOCYTES 0.4 % (0-5); LYMPHOCYTES 24.6 % (15-50); MCH 26.2 pg (26.0-34.0); MCHC 32.9 g/dL (31.0-37.0); MCV 79.7 fL (80.0-100.0); MEAN PLATELET VOLUME 10.8 fL (7.4-10.4); MONOCYTES 10.1 % (2-11); NEUTROPHILS 58.7 % (40-80); PLATELET COUNT 179 10x3/uL (130-400); RBC 5.26 10x6/uL (4.20-6.10); RDW 13.2 % (11.5-14.5); WBC 8.1 10x3/uL (4.8-10.8)
[2018-06-17 06:11] LABS: CALC OSMOLALITY 283 mosm/kg (275-300); CALCIUM 8.4 mg/dL (8.5-10.1); CARBON DIOXIDE 23.9 mmol/L (21.0-32.0); CHLORIDE - SERUM 104 mmol/L (98-107); CREATININE - SERUM 0.9 mg/dL (0.6-1.3); GLUCOSE 194 mg/dL (74-106); POTASSIUM - SERUM 3.8 mmol/L (3.5-5.1); SODIUM 139 mmol/L (136-145); UREA NITROGEN 14 mg/dL (7-18); eGFR NON AFRICAN AMERICAN > 90 mL/min (90-120)
[2018-06-17 07:47] VITALS: BP 108/79
[2018-06-17 11:21] VITALS: BP 114/79
[2018-06-17] MEDS ORDERED: XARELTO15 MG PO (12:34)
[2018-06-17] MEDS ORDERED: CARDIZEM60 MG PO (12:38)
[2018-06-17] MEDS ORDERED: BETAPACE 120 M120 MG PO (12:38)
--- NOTE | 2018-06-19 07:13 | MORECARE ---
CASE MANAGEMENT DISCHARGE SUMMARY PATIENT: GUY MENDIETA UNIT: [id number] ADM DATE: 06/12/18 AGE: 63 : 55 SEX: M ROOM/BED: D.2121 AUTHOR: MATHEW GONZALEZ PHYSICIAN: REFERRING PHYSICIAN: HERBIE SEWELL MD DATE OF SERVICE: 06/19/18 Discharge Plan Patient Name: GUY MENDIETA Facility: [facility]:[place] : 1955 Planned Disposition: Home Anticipated Discharge Date: 06/17/18 Discharge Date: 06/17/2018 Expected LOS: 5 Initial Reviewer: [email or web address] Initial Review Date: 06/19/2018 Generated: 06/19/18 8:13 am Patient Name: GUY MENDIETA Page 66427 at 0713 All edits/amendments must be made on the electronic document DICTATION DATE: 06/19/18712 FUEL CELL DESIGNER: KARON 06/19/18712 RPT#: [id number] DC DATE:06/17/18 STATUS: DIS IN [facility] [address] [place] [address] END OF REPORT
== END 2018-06-17 14:30 | disposition home or self-care (01) | DRG 309 ==
LOC: D.ER 13:45 → D.EDHOLD 15:07 → D.M2 15:07
PROVIDERS: Family Medicine; ADMIT Internal Medicine Nephrology
DX: I48.91 Unspecified atrial fibrillation (principal); F33.1 Major depressive disorder, recurrent, moderate; E11.9 Type 2 diabetes mellitus without complications; I25.10 Atherosclerotic heart disease of native coronary artery without angina pectoris; I10 Essential (primary) hypertension; E78.5 Hyperlipidemia, unspecified; F41.9 Anxiety disorder, unspecified; G89.29 Other chronic pain; M54.9 Dorsalgia, unspecified; E03.9 Hypothyroidism, unspecified; K21.9 Gastro-esophageal reflux disease without esophagitis; I48.92 Unspecified atrial flutter; Z79.01 Long term (current) use of anticoagulants; R00.0 Tachycardia, unspecified

== ENCOUNTER → 2018-07-30 14:24 | Outpatient (CLI) | payer OTHER ==
[~2018-07-30] VITALS: Ht 177.8 cm; Wt 113.6 kg
--- NOTE | ~2018-07-30 | HEMODYNAMI ---
PATIENT:GUY MENDIETA MEDICAL RECORD: [id number] : 55 LOCATION:DSUZANNE ADMISSION DATE: 07/30/18 Generatedon:07/30/201813:10 Patient name: GUY MENDIETA Patient #: [id number] SSN : : 1955 Date of study: 07/30/2018 Page: Of Hemodynamic Procedure Report Patient Data Patient Demographics Procedure consent was obtained First Name: GUY Gender: Male Last Name: GAYATRI : 1955 Patient #: [id number] Age: 63 year(s) Race: Unknown Additional ID: [id number] Contact details Address: [address] [place] [address] State: [place] City: [place] Zip code: [address] Past Medical History Allergies: No known allergies Admission Admission Data Admission Date: 07/30/2018 Admission Time: 13:00 Admit Source: Other Lab Results Lab Result Date: 07/30/2018 Lab Result Time: 11:20 Biochemistry Name Units Result Min Max BUN mg/dl 19 --(----)*- 7 18 Creatinine mg/dl 1 --(--*-)-- 0.6 1.3 CBC Name Units Result Min Max Hematocrit % 43.5 --(*---)-- 42 54 Hemoglobin g/dl 14.1 --(*---)-- 13.5 17.5 Procedure Procedure Types Cath Procedure Diagnostic Procedure Cardioversion External Procedure Description Procedure Date Procedure Date: 07/30/2018 Procedure Start Time: 13:01 Procedure End Time: 13:10 Procedure Staff Name Function Jamarcus Luque MD Performing Physician Fermin Ruiz RT Monitor Varinder Shah RN Nurse Caleb Abarca RT Dog Food Dough Mixer Ludwig Villalta CRNA Additional personnel Procedure Data Cath Procedure Fluoroscopy Diagnostic fluoroscopy Total fluoroscopy Time: 0 time: 0 min min Diagnostic fluoroscopy Total fluoroscopy dose: 0 dose: 0 mGy mGy Contrast Material Contrast Material Type Amount (ml) Isovue 300 0 Estimated blood loss: 0 ml Procedure Complications No complications Procedure Medications Medication Administration Route Dosage Oxygen etCO2 Nasal cannula 6 l/min 0.9% NaCl I.V. 100 ml/hr Refer to Anesthesia Notes for Sedation Medications Hemodynamics Rest HGB: 14.1 (g/dl) Heart Rate: 99 (bpm) Snapshots Pre Cath Intra NCS Post Cath Vital Signs Time Heart Resp SPO2 etCO2 NIBP Rhythm Pain Sedation Rate (ipm) (%) (mmHg) (mmHg) Status Level (bpm) 12:52:30 110 16 95 0 109/73(92) NSR 0 (11) 10(A) , No pain 12:56:44 98 17 97 0 106/74(86) NSR 0 (11) 10(A) , No pain 13:01:02 109 17 97 0 79/57(73) NSR 0 (11) 10(A) , No pain 13:02:53 56 17 92 0 78/46(54) NSR 0 (11) 10(A) , No pain 13:05:49 58 17 92 0 74/38(50) NSR 0 (11) 10(A) , No pain 13:08:33 59 13 96 0 80/48(63) NSR 0 (11) 10(A) , No pain 13:10:05 60 14 97 0 81/52(61) NSR 0 (11) 10(A) , No pain Medications Time Medication Route Dose Verified Delivered Reason Notes Effective ness by by 12:51:47 Oxygen etCO2 6 Jamarcus Varinder Per Nasal l/min Rebel Shah RN physician cannula 12:51:56 0.9% NaCl I.V. 100 Jamarcus Varinder Per ml/hr Rebel Shah RN physician 12:52:01 Refer to Jamarcus Reeder Anesthesia Rebel Shah RN Notes for Sedation Medications Procedure Log Time Note 12:35:26 Informed consent obtained and on chart 12:40:30 Admit Source: Other 12:42:03 Varinder Shah RN sent for patient. Start room use. 12:42:04 Time tracking: Regular hours (M-F 7:00 - 5:00) 12:42:08 Plan of Care:Hemodynamics will remain stable., Cardiac rhythm will remain stable., Comfort level will be maintained., Respiratory function will remain adequate., Patient/ family verbilizes understanding of procedure., Procedure tolerated without complication., Recovers from procedure without complications.. 12:46:06 H&P Date Dictated: 07/25/2018 Within 30 days and on chart., H&P Addendum completed by physician on day of procedure. (MUST COMPLETE FOR ALL OUTPATIENTS). 12:46:16 Patient arrived from Pre/Post Procedure Room to CCL 3. Patient remains on bed/stretcher for procedure. 12:46:18 Warm blankets applied, and braeden hugger turned on for patient comfort. 12:46:18 Correct patient and procedure confirmed by team. 12:46:19 ECG and BP/O2 sat monitors applied to patient. 12:46:21 Pre-procedure instructions explained to patient. 12:46:21 Pre-op teaching completed and patient verbalized understanding. 12:46:22 Family in waiting room. 12:46:23 Patient NPO since Midnight. 12:46:29 Patient allergic to No known allergies 12:51:19 Vital chart was started 12:51:47 Oxygen 6 l/min etCO2 Nasal cannula was administered by Varinder Shah RN; Per physician; 12:51:56 0.9% NaCl 100 ml/hr I.V. was administered by Varinder Shah RN; Per physician; 12:52:01 Refer to Anesthesia Notes for Sedation Medications was administered by Varinder Shah RN; ; 12:52:41 Baseline sample Acquired. 12:53:14 Rhythm: atrial flutter 12:53:15 Full Disclosure recording started 12:53:20 Is the patient allergic to Iodine/contrast media? No. 12:53:21 Is patient on blood thinner?Yes 12:53:24 ACC The patient was administered the following blood thiners within the last 24 hours: Xarelto 12:53:30 Patient diabetic? Yes. 12:53:30 If diabetic: On Metformin? Yes 12:53:33 Previous problem with sedation/anesthesia? No ? 12:53:34 Snore? Yes 12:53:34 Sleep apnea? Yes 12:53:35 Deviated septum? No 12:53:36 Opens mouth fully? Yes 12:53:37 Sticks out tongue? Yes 12:53:38 Airway obstruction? No ? 12:53:41 Dentures? No ? 12:53:50 IV patent on arrival in left hand with 0.9% NaCl at [facility]. 12:54:23 Lab Result : BUN 19 mg/dl 12:: Lab Result : Creatinine 1 mg/dl 12:: Lab Result : Hemoglobin 14.1 g/dl 12:54: Lab Result : Hematocrit 43.5 % 12:54:25 Lab results completed and on chart. 12:54:28 Alarms reviewed by Sandrita Cool 12:54:35 Quick Combo opened to sterile field. 12:54:40 Quick combo pads placed on patients chest and back. 12:56:15 Ludwig Villalta CRNA present and monitoring patient for TIVA. 12:59:48 Physician arrived 12:59:48 --------ALL STOP TIME OUT------ 12:59:48 Final Timeout: patient, procedure, and site verified with staff and physician. All members of the team are in agreement. 13:00:06 Fire Safety Assessment: B--The operative or invasive procedure is being performed above the xiphoid process or in the oropharynx., C--Open oxygen or nitrous oxide is being used. 13:00:10 Physical assessment completed. ASA score P 3 - A patient with severe systemic disease as per Jamarcus Luque MD. 13:00:13 Sedation plan: TIVA Medication:Propofol 13:00:15 Procedure started. 13:01:21 Defibrillator synced and charged to 100 Joules. 13:01:23 Shock delivered. 13:01:40 Patient cardioverted to sinus rhythm . 13:01:45 Procedure ended.(Physican Out) 13:02:09 Fluoroscopy time 00.00 minutes. 13:02:11 Flurop Dose total: 0 13:02:11 Fluoroscopy dose: 0 mGy 13:02:13 Contrast amount:Isovue 300 0ml. 13:02:19 Post Procedure Pulses reassessed and unchanged 13:02:33 Post-procedure physical assessment completed. ASA score P 3 - A patient with severe systemic disease as per Jamarcus Luque MD. 13:02:50 Post procedure rhythm: sinus rhythm 13:03:49 Estimated blood loss: 0 ml 13:04:29 Post procedure instruction explained to patient.Patient verbalizes understanding. 13:04:30 Patient needs reinforcement of post procedure teaching. 13:04:41 Procedure and supply charges have been captured, reviewed, submitted and are correct. 13:04:43 Procedure Complication : No complications 13:10:21 Vital chart was stopped 13:10:21 See physician's report for complete and final results. 13:10:22 Report given to Pre/Post Procedure Room. 13:10:25 Patient transfered to Pre/Post Procedure Room with Stretcher. 13:10:27 Procedure ended. 13:10: Full Disclosure recording stopped 13:10:31 End room use (Document Last) Device Usage Item Manufacture Quantity Catalog Hospital Part Current Minimal Lot# / Name Number Charge Number [facility]# Code Attune RTD 1 [id number] Combo Signature Audit [place] Stage Time Signature Unsigned Intra-Procedure 07/30/2018 Fermin Ruiz 1:10:47 PM RT(R) Signatures Monitor : Fermin Ruiz RT Signature : Date : Time : [address] [address]
[2018-07-30 11:42] VITALS: BP 98/58; Ht 177.8 cm; Wt 113.6 kg
[2018-07-30 11:57] LABS: EOSINOPHILS 3.2 % (0-7); HEMATOCRIT 43.5 % (42.0-54.0); HEMOGLOBIN 14.1 g/dL (13.5-17.5); LYMPHOCYTES 24.9 % (15-50); MCH 24.9 pg (26.0-34.0); MCHC 32.4 g/dL (31.0-37.0); MCV 76.7 fL (80.0-100.0); MEAN PLATELET VOLUME 11.8 fL (7.4-10.4); MONOCYTES 9.5 % (2-11); NEUTROPHILS 61.4 % (40-80); PLATELET COUNT 175 10x3/uL (130-400); RBC 5.67 10x6/uL (4.20-6.10); WBC 7.9 10x3/uL (4.8-10.8)
[2018-07-30 11:58] LABS: BASOPHILS 0.4 % (0-2); IMMATURE GRANULOCYTES 0.6 % (0-5)
[2018-07-30 11:59] LABS: CALC OSMOLALITY 281 mosm/kg (275-300); CALCIUM 8.4 mg/dL (8.5-10.1); CARBON DIOXIDE 21.2 mmol/L (21.0-32.0); CHLORIDE - SERUM 105 mmol/L (98-107); POTASSIUM - SERUM 4.8 mmol/L (3.5-5.1); SODIUM 139 mmol/L (136-145); UREA NITROGEN 19 mg/dL (7-18); eGFR NON AFRICAN AMERICAN 80 mL/min (90-120)
[2018-07-30 12:00] LABS: GLUCOSE 128 mg/dL (74-106)
[2018-07-30 12:02] LABS: INR 1.7 (0.85-1.17); PROTIME 19.3 SECONDS (11.6-15.0)
--- NOTE | 2018-07-30 13:30 | NUR ---
PT IN NSR. RATE 65. BP 94/61
--- NOTE | 2018-07-30 13:46 | NUR ---
PT SET UP WITH SANDWICH TRAY AND DRINK.
--- NOTE | 2018-07-30 14:00 | NUR ---
PIV D/C'D WITH CATH TIP INTACT. PT TOLERATED WELL. INSTRUCTED TO GET UP AND GET DRESSED. FAMILY AT BEDSIDE. PT STILL IN NSR. RATE 65
--- NOTE | 2018-07-30 14:10 | NUR ---
DISCUSSED DISCHARGE INSTRUCTIONS WITH PT. THEY VOICED UNDERSTANDING.
--- NOTE | 2018-07-30 14:15 | NUR ---
PT TAKEN OUT BY WHEELCHAIR. NO S/S OF DISTRESS NOTED. ALL BELONGINGS IN HAND.
[~2018-07-30 14:24] MED LIST changes: +AMOXICILLIN875 MG PO; +BETAPACE 120 M120 MG PO; +CARDIZEM60 MG PO; +GABAPENTIN100 MG; +XARELTO15 MG PO
== END | disposition home or self-care (01) ==
LOC: D.CATH 13:00
PROVIDERS: Internal Medicine Cardiovascular Disease
DX: I48.92 Unspecified atrial flutter (principal)

== ENCOUNTER → 2018-09-04 14:28 | Outpatient (CLI) | payer OTHER ==
[2018-07-30 11:42] VITALS: BMI 35.9
== END | disposition home or self-care (01) ==
LOC: D.US 14:28
PROVIDERS: ATTEND Internal Medicine Cardiovascular Disease
DX: I70.219 Atherosclerosis of native arteries of extremities with intermittent claudication, unspecified extremity (principal); M79.606 Pain in leg, unspecified; I25.10 Atherosclerotic heart disease of native coronary artery without angina pectoris

== ENCOUNTER 2019-08-23 21:17 | Inpatient (IN) | payer OTHER ==
[~2019-08-23] VITALS: Ht 177.8 cm; Wt 114.7 kg
[2019-08-23] MEDS ORDERED: BETAPACE 120 M120 MG PO (21:25)
[2019-08-23] MEDS ORDERED: VITAMIN D (21:26)
[2019-08-23] MEDS ORDERED: CLARITIN 10 MG10 MG PO (21:27)
[2019-08-23] MEDS ORDERED: PHENYLEPHRINE HCL (21:30)
[2019-08-23] MEDS ORDERED: ABX (21:31)
[2019-08-23] MEDS ORDERED: PROZAC (21:31)
[2019-08-23 21:39] VITALS: BP 124/76
[2019-08-23 21:51] LABS: BASOPHILS 0.3 % (0-2); EOSINOPHILS 3.4 % (0-7); HEMATOCRIT 48.7 % (42.0-54.0); HEMOGLOBIN 16.1 g/dL (13.5-17.5); IMMATURE GRANULOCYTES 0.4 % (0-5); LYMPHOCYTES 29.2 % (15-50); MCH 26.6 pg (26.0-34.0); MCHC 33.1 g/dL (31.0-37.0); MCV 80.4 fL (80.0-100.0); MEAN PLATELET VOLUME 10.8 fL (7.4-10.4); MONOCYTES 9.5 % (2-11); NEUTROPHILS 57.2 % (40-80); PLATELET COUNT 172 10x3/uL (130-400); RBC 6.06 10x6/uL (4.20-6.10); RDW 13.9 % (11.5-14.5); WBC 9.7 10x3/uL (4.8-10.8)
[2019-08-23 21:59] LABS: APTT 26.5 SECONDS (22.8-39.4); INR 1.03 (0.85-1.17); PROTIME 13.4 SECONDS (11.6-15.0)
[2019-08-23 22:02] LABS: CALC OSMOLALITY 286 mosm/kg (275-300); CALCIUM 8.8 mg/dL (8.5-10.1); CARBON DIOXIDE 22.5 mmol/L (21.0-32.0); CHLORIDE - SERUM 105 mmol/L (98-107); CREATININE - SERUM 1.1 mg/dL (0.6-1.3); SODIUM 139 mmol/L (136-145); UREA NITROGEN 17 mg/dL (7-18); eGFR NON AFRICAN AMERICAN 71 mL/min (90-120)
[2019-08-23 22:03] LABS: GLUCOSE 232 mg/dL (74-106)
[2019-08-23 22:14] LABS: ALBUMIN 3.5 g/dL (3.4-5.0); ALKALINE PHOSPHATASE 95 U/L (30-120); ALT (SGPT) 25 U/L (10-68); BILIRUBIN - TOTAL 0.31 mg/dL (0.2-1.3); CKMB 3.1 U/L (0.0-3.6); CREATINE KINASE 184 UL (21-232); MAGNESIUM - SERUM 1.9 mg/dL (1.8-2.4); PROTEIN - SERUM 6.9 g/dL (6.4-8.2); TROPONIN-I < 0.017 ng/mL (0.000-0.060)
[2019-08-23 23:03] VITALS: BP 126/74
--- NOTE | 2019-08-23 23:30 | NUR ---
ADMIT TO ROOM 2122 FROM ER. ALERT/ORIENTED AND ARRIVED WITH CARDIRODRIGUEZM DRIP AND IVF NS INFUSING. ADMISSION HISTORY AND ASSESSMENT COMPLETED. HOME MEDS REVIEWED, SOME WITH UNKNOWN INFORMATION THAT PATIENT CANNOT REPLY. PLAN OF CARE REVIEWED. WILL BE NPO UNTIL SEE BY DUMPER CENTRAL CONCRETE MIXING PLANT IN AM.
--- NOTE | 2019-08-24 00:15 | NUR ---
ORDERED RHYTMOL DOSE GIVEN. PT RESTING. NO DISTRESS.
[2019-08-24 00:30] VITALS: BP 111/58; BMI 36.2
[2019-08-24 04:00] VITALS: BP 115/64
[2019-08-24 06:04] LABS: BASOPHILS 0.2 % (0-2); EOSINOPHILS 2.8 % (0-7); HEMATOCRIT 46.1 % (42.0-54.0); IMMATURE GRANULOCYTES 0.5 % (0-5); LYMPHOCYTES 36.2 % (15-50); MCH 26.3 pg (26.0-34.0); MCHC 32.5 g/dL (31.0-37.0); MCV 80.7 fL (80.0-100.0); MEAN PLATELET VOLUME 11.4 fL (7.4-10.4); NEUTROPHILS 51.3 % (40-80); PLATELET COUNT 158 10x3/uL (130-400); RBC 5.71 10x6/uL (4.20-6.10); WBC 8.5 10x3/uL (4.8-10.8)
[2019-08-24] MEDS ORDERED: GABAPENTIN100 MG PO (06:20)
[2019-08-24] MEDS ORDERED: VITAMIN D10000 UNI1 (06:21)
[2019-08-24] MEDS ORDERED: LEVEMIR FL100 UNIT/1 SC (06:24)
[2019-08-24 06:37] LABS: CALC OSMOLALITY 289 mosm/kg (275-300); CARBON DIOXIDE 22.3 mmol/L (21.0-32.0); CHLORIDE - SERUM 107 mmol/L (98-107); GLUCOSE 181 mg/dL (74-106); PHOSPHOROUS 3.9 mg/dL (2.5-4.9); POTASSIUM - SERUM 3.8 mmol/L (3.5-5.1); SODIUM 142 mmol/L (136-145); T4 THYROXIN - FREE 1.56 ng/dL (0.76-1.46); THYROID STIMULATING HORMONE 0.85 uIU/mL (0.36-3.74); UREA NITROGEN 18 mg/dL (7-18); eGFR NON AFRICAN AMERICAN 80 mL/min (90-120)
[2019-08-24 10:56] VITALS: BP 117/83
[2019-08-24 13:44] VITALS: Ht 177.8 cm; Wt 114.7 kg
[2019-08-24 14:31] VITALS: BP 101/62
[2019-08-24 14:49] LABS: BILIRUBIN NEGATIVE (NEGATIVE); GLUCOSE 1000 mg/dL (NEGATIVE); KETONE NEGATIVE (NEGATIVE); NITRITE NEGATIVE (NEGATIVE); SPECIFIC GRAVITY 1.015 (1.005-1.020); UROBILINOGEN NORMAL (NORMAL)
[2019-08-24 18:37] VITALS: BP 117/61
[2019-08-24 20:00] VITALS: BP 121/74
--- NOTE | 2019-08-24 20:36 | NUR ---
INITIAL ROUNDS COMPLETED AT 1910 HRS. PT DENIED ANY DISCOMFORT. ASSESSMENT COMPLETED AT 1999 HRS. UCAF PER CM HR 122. ALERT AND ORIENTED TO PERSON, PLACE AND TIME. ESCALONA. LUNGS ESSENTIALLY CTA. IV TO L WRIST WITH CARDIZEM AT 10MG/HR AND NS AT 100CC/HR. IV PATENT. SR UP X2, CALL LIGHT WITHIN REACH.
--- NOTE | 2019-08-24 22:49 | NUR ---
UCAF PER CM HR 119. PT WATCHING TV. NO DISTRESS NOTED. SRUP X2, CALL LIGHT WITHIN REACH.
[2019-08-25] VITALS: BP 116/80
--- NOTE | 2019-08-25 01:11 | NUR ---
PT WATCHING TV. NO DISTRESS NOTED. SR UP X2, CALL LIGHT WITHIN REACH.
--- NOTE | 2019-08-25 02:14 | NUR ---
PT CONVERTED TO SB HR 59. VSS.
[2019-08-25 02:15] VITALS: BP 112/61
--- NOTE | 2019-08-25 02:50 | NUR ---
DR EMANUEL PAGED AT 0225 HRS. INFORMED PT CONVERTED TO SR/SB 58-60, VSS AND CARDIZEM DRIP AT 10MG/HR. NEW ORDERS TO DROP CARDIZEM DRIP TO 5MG/HR FOR THE NIGHT. CARDIZEM CHANGED TO 5MG/HR.
[2019-08-25 04:00] VITALS: BP 115/67
--- NOTE | 2019-08-25 04:48 | NUR ---
SR PER CM HR 63. PT WATCHING TV. DENIES ANY DISCOMFORT. SR UP X2, CALL LIGHT WITHIN REACH.
[2019-08-25 04:56] LABS: BASOPHILS 0.2 % (0-2); EOSINOPHILS 4.1 % (0-7); HEMATOCRIT 44.3 % (42.0-54.0); HEMOGLOBIN 14.7 g/dL (13.5-17.5); IMMATURE GRANULOCYTES 0.5 % (0-5); LYMPHOCYTES 30.3 % (15-50); MCH 26.5 pg (26.0-34.0); MCHC 33.2 g/dL (31.0-37.0); MCV 79.8 fL (80.0-100.0); MEAN PLATELET VOLUME 10.7 fL (7.4-10.4); MONOCYTES 9.5 % (2-11); NEUTROPHILS 55.4 % (40-80); PLATELET COUNT 169 10x3/uL (130-400); RBC 5.55 10x6/uL (4.20-6.10); RDW 13.7 % (11.5-14.5); WBC 9.8 10x3/uL (4.8-10.8)
[2019-08-25 05:08] LABS: CALC OSMOLALITY 281 mosm/kg (275-300); CALCIUM 8.1 mg/dL (8.5-10.1); CARBON DIOXIDE 25.4 mmol/L (21.0-32.0); CHLORIDE - SERUM 107 mmol/L (98-107); CREATININE - SERUM 0.9 mg/dL (0.6-1.3); GLUCOSE 161 mg/dL (74-106); POTASSIUM - SERUM 3.9 mmol/L (3.5-5.1); SODIUM 139 mmol/L (136-145); UREA NITROGEN 15 mg/dL (7-18); eGFR NON AFRICAN AMERICAN 90 mL/min (90-120)
--- NOTE | 2019-08-25 06:50 | NUR ---
VSS THIS AM. SR PER CM. PT STATES FEELS MUCH IMPROVED. NEEDS MET; WILL CONTINUE TO MONITOR.
[2019-08-25 08:43] VITALS: BP 120/71
--- NOTE | 2019-08-25 11:03 | NUR ---
PT REFUSED FINGER STICK, STATES HE IS READY TO GO HOME, JUST WAITING ON HIS PAPERWORK. COLD ROLLING MACHINE SETTER NOTIFIED PT THAT THERE ARE NO ORDERS FOR D/C JUST YET, NURSE WILL NOTIFY TIFFANIE ARZOLA ABOUT NOTE FROM CARDIOLOGY STATING OK FOR PT TO BE D/C TODAY.
--- NOTE | 2019-08-25 12:11 | NUR ---
PT STATING THAT HE IS FIXING TO LEAVE, HE WAS TOLD THAT HE COULD BE D/C TODAY BT CARDIOLOGY. CALLED TIFFANIE ARZOLA AND INFORMED HER PT STATING THAT PT IS FIXING TO LEAVE WITHOUT DISCHARGE PAPERS. TIFFANIE STATED THAT SHE WOULD CHECK INTO IT. DR. RESTREPO AT BEDSIDE TALKING TO PT AND PT'S SISTER.
[2019-08-25] MEDS ORDERED: XARELTO20 MG PO (12:14)
[2019-08-25 12:16] VITALS: BP 116/71
--- NOTE | 2019-08-25 12:59 | NUR ---
PROVIDED VERBAL AND WRITTEN DISCHARGE TEACHING TO PT WHO VERBALIZED UNDERSTANDING REGARDING TEACHING. D/C LR WRISTIV WITH CATHETER TIP INTACT. HEART MONITOR REMOVED AND TAKEN TO LAWN AND TREE SERVICE SPRAY SUPERVISOR. PT LEFT UNIT VIA WHEELCHAIR WITH ALL BELONGINGS, NAD NOTED.
--- NOTE | 2019-08-25 15:15 | MORECARE ---
CASE MANAGEMENT DISCHARGE SUMMARY PATIENT: GUY MENDIETA UNIT: [id number] ADM DATE: 08/24/19 AGE: 64 : 55 SEX: M ROOM/BED: D.9263 AUTHOR: CARLOS,DOC PHYSICIAN: REFERRING PHYSICIAN: HERBIE SEWELL MD DATE OF SERVICE: 08/25/19 Discharge Plan Patient Name: GUY MENDIETA Facility: [facility]:[place] : 1955 Planned Disposition: Home Anticipated Discharge Date: 08/25/19 Discharge Date: 08/25/2019 Expected LOS: 1 Initial Reviewer: [email or web address] Initial Review Date: 08/26/2019 Generated: 08/25/19 4:14 pm Comments DCP- Discharge Planning Updated by [email or web address]: Israel Ye on 08/25/19 2:[address] Patient Name: GUY MENDIETA Admission Status: ER Accout number: [id number] Admission Date: 08-24-2019 : 1955 Admission Diagnosis: Attending: HERBIE SEWELL Current LOS: 1 Anticipated DC Date: 08-25-2019 Planned Disposition: Home Primary Insurance: [employer]ED [employer]ICA[employer] Discharge Planning Comments: CM MET WITH PT IN ROOM TO DISCUSS DISCHARGE PLANNING AND NEEDS. PT REPORTS LIVING AT HOME INDEPENDENTLY WITH HIS OLDEST SON. PT HAS NO MEDICAL EQUIPMENT AND NO OUTSIDE SERVICES ASSISTING IN THE HOME. CM DISCUSSED AVAILABILITY OF HOME HEALTH, REHAB SERVICES AND MEDICAL EQUIPMENT. PT DENIES DISCHARGE NEEDS, REPORTS HIS SISTER WILL PICK HIM UP FOR DISCHARGE HOME. ENGLISH COMPOSITION INSTRUCTOR NURSE NOTIFIED. Audio Specialist: Israel Ye DCPIA - Discharge Planning Initial Assessment Updated by [email or web address]: Israel Ye on 08/25/19 3:08 pm * Is the patient Alert and Oriented? Yes * How many steps to enter\exit or inside your home? * PCP DR. SRINIVASAN * Pharmacy [facility] [place] * Preadmission Environment Home with Family * ADLs Independent * Equipment None * Other Equipment NO MEDICAL EQUIPMENT PROVIDER PREFERENCE * List name and contact numbers for known caregivers / representatives who currently or will assist patient after discharge: RAINER MENDIETA, BROTHER, * Verbal permission to speak to the caregivers and representatives has been obtained from the patient. Yes * Community resources currently utilized None * Please name any agencies selected above. NONE * Additional services required to return to the preadmission environment? No * Can the patient safely return to the preadmission environment? Yes * Has this patient been hospitalized within the prior 30 days at any hospital? No Patient Name: GUY MENDIETA Page 23412 at 1515 All edits/amendments must be made on the electronic document DICTATION DATE: 08/25/191513 TOE PULLER: KARON 08/25/191513 RPT#: [id number] DC DATE:08/25/19 STATUS: DIS IN [facility] [address] [place] [address] END OF REPORT
--- NOTE | 2019-08-27 08:19 | CN ---
PATIENT NAME:GUY MENDIETA MEDICAL RECORD: [id number] : 55 LOCATION:D. D.2123 ADMIT DATE: 08/24/19 ACCOUNT: [id number] CONSULTING PHYSICIAN: JAYLON PALMER MD REFERRING PHYSICIAN: HERBIE SEWELL MD DATE OF CONSULTATION: 08/24/2019 HISTORY OF PRESENT ILLNESS: A 64-year-old gentleman with known history of coronary artery disease, status post coronary bypass grafting, has a history of atrial fibrillation, status post cardioversion approximately a year to year and a half ago, has had no real angina since that time, rate has been well controlled as well, was watching the [employer], had an upper respiratory tract infection recently, had acute onset of palpitations, heart racing, and fluttering, presented to the ER, was found to be in atrial fibrillation with RVR. We are asked to see him concerning his cardiovascular status. PAST MEDICAL HISTORY: Includes: 1. History of hypertension. 2. Hyperlipidemia. 3. Atrial fibrillation as described above. 4. Coronary artery disease, status post coronary artery bypass grafting. 5. Diabetes mellitus. 6. Hypothyroidism, on replacement. ALLERGIES: No known drug allergies. MEDICATIONS: Include Zyrtec 10 mg p.o. daily, Flomax 0.4 every day, pravastatin 20 every day, lisinopril 2.5 every day, sotalol 60 mg b.i.d., Prozac 20 every day, Neurontin 100 mg p.o. every day, aspirin 81 every day, Synthroid 175 mcg daily, insulin as well as Jardiance 12.5 daily, metformin 0.5 gram b.i.d. SOCIAL HISTORY: Nonsmoker, nondrinker. Easily takes care of all his ADLs. Stays quite active. No set exercise program. REVIEW OF SYSTEMS: The patient reports easy bruising but reports no swollen glands. The patient reports no fever, no night sweats, no significant weight gain, no significant weight loss. No significant exercise tolerance. The patient reports no dry eyes, no irritation, no vision change. Patient reports no difficulty hearing and no ear pain. Patient reports no frequent nose bleeds or nose and sinus problems. Patient reports on arm pain on exertion. No shortness of breath while lying down. No history of heart murmur. Patient reports no cough, no wheezing or coughing up blood. Patient reports no abdominal pain, no vomiting. Normal appetite. No diarrhea and not vomiting blood. No nausea and no constipation. Patient reports no incontinence. No difficulty urinating. No hematuria. No increased frequency. Patient reports no muscle aches. No weakness, no arthralgias, no back pain. No swelling of the extremities. Patient reports no abnormal mole, no jaundice, no rashes. Reports no loss of consciousness. No weakness and no numbness. No seizures, dizziness, or headaches. The patient reports no depression, no sleep disturbance, feeling safe in a relationship and no alcohol abuse. Patient reports on fatigue. Reports no runny nose or sinus pressure. No itching, no hives, and no frequent sneezing. PHYSICAL EXAMINATION: GENERAL: Pleasant gentleman in no acute distress, appears stated age. CONSULT REPORT [id number] GUY MENDIETA VITAL SIGNS: Blood pressure 117/83, pulse 108 and irregular. HEENT: Normocephalic, atraumatic. NECK: No bruits noted. HEART: Irregular, rates around 100. LUNGS: Good air excursion. ABDOMEN: Soft, nontender. EXTREMITIES: Pulses well preserved, 2+ with no edema present. IMPRESSION: Recurrent atrial fibrillation. We will increase sotalol, give one dose of digoxin, Cardizem drip for rate control, started on Xarelto. Obtain medical cardioversion. If continues in fib, we will plan for electrocardioversion in the future. TRANSINT:[id number] Voice Confirmation ID: [id number] DOCUMENT ID: [id number] JAYLON PALMER MD at 0819 CC: [id number] DICTATION DATE: 08/24/19 1119 KNITTING MACHINE FIXER: 08/24/19 2258 DIS IN 08/25/19 [id number] [place] [address]
--- NOTE | 2019-08-27 08:19 | EC ---
PATIENT:GUY MENDIETA DATE OF SERVICE: 08/24/19 SEX: M MEDICAL RECORD: [id number] DATE OF : 55 LOCATION:D.M2 D.212 AGE OF PATIENT: 64 ADMISSION DATE: 08/24/19 REFERRING PHYSICIAN: INTERPRETING PHYSICIAN: JAYLON PALMER MD ECHOCARDIOGRAM REPORT ECHO CHARGES 4 ECHO COMPLETE Date: 08/24/19 CLINICAL DIAGNOSIS: AFIB HX AVR/CAD/CABG ECHOCARDIOGRAPHIC MEASUREMENTS (adult normal given) AC root (d.<3.7cm) 3.4 cm LV Septum d (<1.2 cm> 1.4 cm Valve Excursion 1.5 cm LV Septum (systole) 1.6 cm Left Atria (s.<4.0cm> 4.1 cm LVPW d(<1.2cm) 1.6 cm RV (d.<2.3cm) 3.6 cm LVPW (sytole) 1.8 cm LV diastole(<5.6CM) 4.2 cm MV E-F(>70mm/sec) cm LV systole 2.6 cm LVOT Diameter 2.3 cm MV exc.(>10mm) 2.0 cm Est.ejection fraction (50-75%) % DOPPLER: LVIT cm/sec A 98.0 cm/sec E cm/sec LA cm/sec RVSP 26 mmHg LVOT 118 cm/sec AOP1/2T m/s Asc. Ao 178 cm/sec RVOT 75 cm/sec RA cm/sec PA 135 cm/sec AV Gradient Peak 12.61mmHg AV Mean 8.10 mmHg AV Area 2.7 cm MV Gradient Peak mmHg MV Mean mmHg MV Area cm COMMENTS: Ship'S Carpenter: 2 GABY VERGARA [employer] Milling Machine Operator: 3 Dr. Blackmon TAPE# PACS Pericardial Effusion N DATE OF SERVICE: Adequate 2D, color flow imaging, spectral Doppler, and M-Mode. Mild LVH. LV internal dimensions are normal. Wall motion is normal. EF is greater than or equal to 55%. Tissue prosthetic aortic valve is noted with acceptable Doppler velocity. No significant AI. Left atrium is minimally dilated at 4.1 cm. Mitral valve shows no prolapse. Mild MR. Right-sided chambers are grossly normal. mild TR. ECHOCARDIOGRAM REPORT [id number] GUY MENDIETA TRANSINT:[id number] Voice Confirmation ID: [id number] DOCUMENT ID: [id number] JAYLON PALMER MD at 0819 CC: [id number] DICTATION DATE: 08/25/19922 NETWORK OPERATIONS MANAGER: 08/25/19 1151 DIS IN 08/25/19 [place] [id number] [place] [id number]
== END 2019-08-25 13:03 | disposition home or self-care (01) | DRG 310 ==
LOC: D.ER 21:17 → OBSVTIME 22:27 → D.M2 22:27
PROVIDERS: Family Medicine; ADMIT Internal Medicine Nephrology; ATTEND Internal Medicine Nephrology
DX: I48.20 Chronic atrial fibrillation, unspecified (principal); I10 Essential (primary) hypertension; E78.5 Hyperlipidemia, unspecified; F41.8 Other specified anxiety disorders; G89.29 Other chronic pain; M54.9 Dorsalgia, unspecified; K21.9 Gastro-esophageal reflux disease without esophagitis; I25.10 Atherosclerotic heart disease of native coronary artery without angina pectoris; E03.9 Hypothyroidism, unspecified